=== PATIENT | female | born 1940 | race Caucasian/White ===

== ENCOUNTER 2018-10-14 21:55 | Inpatient (IN) | payer MEDICAID, OTHER, SELFPAY ==
[~2018-10-14] VITALS: Ht 152.4 cm; Wt 54.4 kg
[~2018-10-14 21:55] MED LIST: ENAL20TA PO
[2018-10-14] MEDS ORDERED: ONDANSETRON HCL 4MG/2ML INJ IV STA (22:55)
[2018-10-14] MEDS ORDERED: LORAZEPAM 0.5MG TABLET PO ONE (23:00)
[2018-10-14 23:13] LABS: BASOPHILS % 0.4 % (0.0-2.0); EOSINOPHILS % 0.8 % (0.0-5.0); HEMATOCRIT. 40.6 % (36.0-48.0); HEMOGLOBIN. 13.4 g/dL (12.0-16.0); LYMPHOCYTES % 20.2 % (20.0-50.0); MEAN CORPUSCULAR HEMOGLOBIN 28.4 pg (28.0-32.0); MEAN CORPUSCULAR VOLUME 85.8 fL (81.0-99.0); MEAN PLATELET VOLUME 8.2 fl (7.4-10.4); MONOCYTES % 8.2 % (2.0-8.0); NEUTROPHILS % 70.4 % (40.0-76.0); PLATELET 257 x1000/uL (130-400); RED BLOOD CELL COUNT 4.73 mill/uL (4.2-5.4); RED CELL DISTRIBUTION WIDTH 13.6 % (11.6-14.6)
[2018-10-14 23:16] LABS: CHLORIDE 103 mEq/L (98-107)
[2018-10-15] MEDS ORDERED: HYDROCODONE/ACETAMINOPHEN 10/325MG TABLET PO PRN (07:15)
[2018-10-15] MEDS ORDERED: HYDROMORPHONE HCL/PF 2MG/ML CPJ IV PRN (07:15)
[2018-10-15] MEDS ORDERED: GUAIFENESIN 200MG/10ML SUGAR FREE UDC PO PRN (07:15)
[2018-10-15] MEDS ORDERED: ONDANSETRON HCL 4MG/2ML INJ IV PRN (07:15)
[2018-10-15] MEDS ORDERED: MAGNESIUM/ALUMINUM HYDROXIDE/SIMETHICONE 30ML UDC PO PRN (07:15)
[2018-10-15] MEDS ORDERED: HYDRALAZINE 20MG/ML VIAL IV PRN (07:15)
[2018-10-15] MEDS ORDERED: IPRATROPIUM/ALBUTEROL 0.5-3(2.5)MG/3ML NEB INH PRN (07:15)
[2018-10-15] MEDS ORDERED: CLONIDINE 0.1MG TABLET PO PRN (07:15)
[2018-10-15] MEDS ORDERED: DOCUSATE SODIUM 100MG CAPSULE PO PRN (07:15)
[2018-10-15] MEDS ORDERED: LORAZEPAM 2MG/ML CPJ IV PRN (07:15)
[2018-10-15] MEDS ORDERED: POTASSIUM CHLORIDE 20MEQ TABLET SR PO SCH (07:30)
[2018-10-15] MEDS ORDERED: CALCIUM GLUCONATE 1,000 MG in DEXTROSE 5% WATER 50 ML IV SCH (08:00)
[2018-10-15] MEDS: ASPIRIN 81MG EC TABLET PO SCH (09:43)
[2018-10-15] MEDS: ENOXAPARIN 40MG/0.4ML SYR SUBCUT SCH (09:44)
[2018-10-15 13:28] VITALS: BP 150/88
[2018-10-15] MEDS: LOSARTAN POTASSIUM 25 MG TABLET PO SCH (14:00)
[2018-10-15] MEDS: SODIUM CHLORIDE 0.9% INJ 3ML FLUSH IVF SCH ×2 (14:01→20:34)
[2018-10-15] MEDS: ACETAMINOPHEN 325MG TABLET PO PRN (14:24)
[2018-10-15 14:28] VITALS: BP 135/72
[2018-10-15 14:38] VITALS: BP 135/72
[2018-10-15 15:52] LABS: CREATINE KINASE 356 IU/L (26-192)
[2018-10-15 15:53] LABS: CREATINE KINASE MB FRACTION 2.4 ng/mL (0.5-3.6)
[2018-10-15] MEDS: POTASSIUM CHLORIDE 20MEQ TABLET SR PO SCH (18:44)
[2018-10-15 20:00] VITALS: BP 149/74
[2018-10-16] VITALS: BP 148/78
[2018-10-16 04:00] VITALS: BP 128/58
[2018-10-16] MEDS: SODIUM CHLORIDE 0.9% INJ 3ML FLUSH IVF SCH ×3 (06:19→21:19)
[2018-10-16 08:00] VITALS: BP 142/66
[2018-10-16] MEDS: ENOXAPARIN 40MG/0.4ML SYR SUBCUT SCH (08:20)
[2018-10-16] MEDS: LOSARTAN POTASSIUM 25 MG TABLET PO SCH (08:20)
[2018-10-16] MEDS: POTASSIUM CHLORIDE 20MEQ TABLET SR PO SCH ×2 (08:20→17:32)
[2018-10-16] MEDS: ASPIRIN 81MG EC TABLET PO SCH (08:20)
[2018-10-16 09:02] LABS: BASOPHILS % 0.3 % (0.0-2.0); EOSINOPHILS % 2.2 % (0.0-5.0); HEMATOCRIT. 36.4 % (36.0-48.0); LYMPHOCYTES % 22.4 % (20.0-50.0); MEAN CORPUSCULAR HEMOGLOBIN 28.8 pg (28.0-32.0); MEAN CORPUSCULAR VOLUME 86.9 fL (81.0-99.0); MEAN PLATELET VOLUME 8.8 fl (7.4-10.4); MONOCYTES % 9.4 % (2.0-8.0); NEUTROPHILS % 65.7 % (40.0-76.0); PLATELET 227 x1000/uL (130-400); RED BLOOD CELL COUNT 4.18 mill/uL (4.2-5.4); RED CELL DISTRIBUTION WIDTH 13.6 % (11.6-14.6)
[2018-10-16 09:28] LABS: CHLORIDE 107 mEq/L (98-107)
[2018-10-16 09:41] LABS: T4 FREE 0.98 ng/dL (0.76-1.46)
[2018-10-16 09:43] LABS: HDL CHOLESTEROL 46 mg/dL (40-59); LDL CHOLESTEROL 105 mg/dL (5-100)
[2018-10-16 11:54] VITALS: BP 140/61
[2018-10-16] MEDS: ACETAMINOPHEN 325MG TABLET PO PRN (12:02)
[2018-10-16 16:00] VITALS: BP 146/57
[2018-10-16 20:00] VITALS: BP 161/93
[2018-10-16] MEDS ORDERED: CALCIUM GLUCONATE 1,000 MG in DEXTROSE 5% WATER 50 ML IV NR (22:00)
[2018-10-17] VITALS: BP 150/74
[2018-10-17 04:00] VITALS: BP 145/70
[2018-10-17] MEDS: SODIUM CHLORIDE 0.9% INJ 3ML FLUSH IVF SCH (06:35)
[2018-10-17 07:27] LABS: CHLORIDE 106 mEq/L (98-107)
[2018-10-17] MEDS: LOSARTAN POTASSIUM 25 MG TABLET PO SCH (08:14)
[2018-10-17] MEDS: POTASSIUM CHLORIDE 20MEQ TABLET SR PO SCH (08:14)
[2018-10-17] MEDS: ENOXAPARIN 40MG/0.4ML SYR SUBCUT SCH (08:14)
[2018-10-17] MEDS: ASPIRIN 81MG EC TABLET PO SCH (08:14)
[2018-10-17 10:18] VITALS: BP 120/76
== END 2018-10-17 11:35 | disposition home or self-care (01) | DRG 48 ==
LOC: ER 21:55 → 8WST 10-15 02:29 → EDBEDREQTM 10-15 02:33 → EDBEDREQ 10-15 02:33 → EDBEDREQDT 10-15 02:33 → ENRESERV 10-15 10:29
PROVIDERS: ADMIT Internal Medicine; ATTEND Internal Medicine
DX: G90.8 Other disorders of autonomic nervous system (principal); E83.51 Hypocalcemia; E87.5 Hyperkalemia; R07.9 Chest pain, unspecified; E87.6 Hypokalemia; I10 Essential (primary) hypertension; Z87.442 Personal history of urinary calculi; Z79.899 Other long term (current) drug therapy
CPT/HCPCS: 36415; 71045; 80048; 80061; 82550; 82553; 84439; 84443; 84484; 85379; 93005; 93306; 93970; 96365; 96375; 99285; C1893; J0610; J1650; J2405; J7050; J7060

== ENCOUNTER 2020-06-19 08:15 | Inpatient (IN) | payer MEDICAID ==
[~2020-06-19] VITALS: Ht 144.8 cm; Wt 81.6 kg
[2020-06-19] MEDS ORDERED: SODIUM CHLORIDE 0.9% 1,000 ML IV ONE (10:45)
[2020-06-19 11:26] LABS: BASOPHILS % 0.1 % (0.0-2.0); HEMATOCRIT. 37.2 % (36.0-48.0); HEMOGLOBIN. 13.1 g/dL (12.0-16.0); LYMPHOCYTES % 7.7 % (20.0-50.0); MEAN CORPUSCULAR HEMOGLOBIN 28.9 pg (28.0-32.0); MEAN CORPUSCULAR VOLUME 82.3 fL (81.0-99.0); MEAN PLATELET VOLUME 8.2 fl (7.4-10.4); MONOCYTES % 3.7 % (2.0-8.0); NEUTROPHILS % 88.5 % (40.0-76.0); PLATELET 276 x1000/uL (130-400); RED BLOOD CELL COUNT 4.52 mill/uL (4.2-5.4); RED CELL DISTRIBUTION WIDTH 13.7 % (11.6-14.6)
[2020-06-19 11:29] LABS: CHLORIDE 76 mEq/L (98-107)
[2020-06-19 11:32] LABS: INR 1.1; PROTHROMBIN TIME 11.4 sec (9.6-11.0)
[2020-06-19] MEDS ORDERED: CALCIUM GLUCONATE 100MG/ML 10ML VIAL IV ONE (12:15)
[2020-06-19] MEDS ORDERED: KCL 20MEQ/100ML PREMIX 100 ML IV ONE (13:00)
[2020-06-19] MEDS ORDERED: LORAZEPAM 2MG/ML CPJ IV NR (14:30)
[2020-06-19] MEDS ORDERED: SODIUM CHLORIDE 0.9% 1,000 ML IV SCH ×2 (14:45→15:15)
[2020-06-19] MEDS ORDERED: ONDANSETRON HCL 4MG/2ML INJ IV PRN (14:45)
[2020-06-19] MEDS ORDERED: ACETAMINOPHEN 325MG TABLET PO PRN (14:45)
[2020-06-19] MEDS ORDERED: MAGNESIUM 2 G PREMIX 50 ML IV NR ×2 (15:00→18:00)
[2020-06-19] MEDS ORDERED: AZITHROMYCIN 500 MG TABLET PO NR (15:00)
[2020-06-19] MEDS: CEFTRIAXONE 1 G PREMIX 50 ML IV SCH (15:00)
[2020-06-19 15:24] LABS: BG BASE EXCESS -0.3 mmol/L (-2.0-2.0); BG CARBOXYHEMOGLOBIN 0.8 % (0.5-1.5); BG DEOXYHEMOGLOBIN 2.7 % (0.0-5.0); BG FRACTION INSPIRED OXYGEN 36; BG HCO3 ACT 29.4 mmol/L (22.0-26.0); BG METHEMOGLOBIN 0.3 % (0.0-1.5); BG OXYGEN SATURATION 97.3 % (92.0-98.5); BG OXYHEMOGLOBIN 96.2 % (94.0-97.0); BG PCO2 73.7 mmHg (35.0-45.0); BG PH 7.219 (7.350-7.450); BG PO2 126.8 mmHg (75.0-100.0); BG SAMPLE SITE RIGHT BRACHIAL; BG TOTAL HEMOGLOBIN 13.8 g/dL (12.0-18.0); BG VENT MODE NASAL CANNULA
[2020-06-19] MEDS: IPRATROPIUM/ALBUTEROL 0.5-3(2.5)MG/3ML NEB HHN SCH ×2 (16:05→23:53)
[2020-06-19] MEDS: METHYLPREDNISOLONE SOD SUCC 40 MG/ML VIAL IV SCH (16:44)
[2020-06-19 17:00] LABS: CHLORIDE 81 mEq/L (98-107)
[2020-06-19] MEDS ORDERED: CALCITRIOL 0.5MCG CAPSULE PO SCH (17:00)
[2020-06-19] MEDS: AMLODIPINE 10MG TABLET PO SCH (17:00)
[2020-06-19] MEDS ORDERED: CALCIUM CARBONATE 1250MG TABLET (500MG ELEMENTAL CALCIUM) PO SCH (17:00)
[2020-06-19] MEDS ORDERED: CALCIUM GLUCONATE 100MG/ML 10ML VIAL IV NR (18:00)
[2020-06-19] MEDS: LORAZEPAM 2MG/ML CPJ IV PRN (20:42)
[2020-06-20] MEDS: METHYLPREDNISOLONE SOD SUCC 40 MG/ML VIAL IV SCH ×3 (01:32→17:05)
[2020-06-20 03:34] LABS: HEMATOCRIT. 36.2 % (36.0-48.0); HEMOGLOBIN. 12.5 g/dL (12.0-16.0); MEAN CORPUSCULAR HEMOGLOBIN 28.3 pg (28.0-32.0); MEAN CORPUSCULAR VOLUME 82.4 fL (81.0-99.0); MEAN PLATELET VOLUME 7.9 fl (7.4-10.4); PLATELET 263 x1000/uL (130-400); RED CELL DISTRIBUTION WIDTH 14.2 % (11.6-14.6)
[2020-06-20 03:40] LABS: CHLORIDE 85 mEq/L (98-107)
[2020-06-20 03:45] LABS: PHOSPHORUS 7.2 mg/dL (2.5-4.9)
[2020-06-20] MEDS: IPRATROPIUM/ALBUTEROL 0.5-3(2.5)MG/3ML NEB HHN SCH ×5 (04:04→21:10)
[2020-06-20] MEDS ORDERED: POTASSIUM CHLORIDE INJ 60 MEQ in DEXT 5% WATER 500 ML IV SCH (06:00)
[2020-06-20] MEDS ORDERED: CALCIUM GLUCONATE 2,000 MG in DEXT 5% WATER 100 ML IV SCH (06:00)
[2020-06-20] MEDS: AMLODIPINE 10MG TABLET PO SCH (09:00)
[2020-06-20] MEDS: AZITHROMYCIN 500 MG TABLET PO SCH (09:00)
[2020-06-20] MEDS: ERGOCALCIFEROL 50000UNITS CAPSULE PO SCH (10:00)
[2020-06-20 10:22] LABS: BG CARBOXYHEMOGLOBIN 0.3 % (0.5-1.5); BG DEOXYHEMOGLOBIN 3.8 % (0.0-5.0); BG FRACTION INSPIRED OXYGEN 50; BG HCO3 ACT 21.1 mmol/L (22.0-26.0); BG METHEMOGLOBIN 0.2 % (0.0-1.5); BG OXYGEN SATURATION 96.2 % (92.0-98.5); BG OXYHEMOGLOBIN 95.7 % (94.0-97.0); BG PH 7.451 (7.350-7.450); BG PO2 86.1 mmHg (75.0-100.0); BG SAMPLE SITE RIGHT RADIAL; BG TOTAL HEMOGLOBIN 12.5 g/dL (12.0-18.0); BG TOTAL RESPIRATORY RATE 24 b/min; BG VENT MODE MASK - BIPAP
[2020-06-20] MEDS: POTASSIUM CHLORIDE INJ 60 MEQ in SODIUM CHLORIDE 0.9% 1,000 ML IV SCH (11:14)
[2020-06-20] MEDS: CALCIUM CARBONATE 1250MG TABLET (500MG ELEMENTAL CALCIUM) PO SCH ×2 (12:00→17:49)
[2020-06-20] MEDS: CEFTRIAXONE 1 G PREMIX 50 ML IV SCH (15:00)
[2020-06-21] VITALS (8 sets, daily range): BP systolic 114–160; BP diastolic 60–86
[2020-06-21] MEDS: METHYLPREDNISOLONE SOD SUCC 40 MG/ML VIAL IV SCH ×3 (02:07→18:52)
[2020-06-21 05:15] LABS: CHLORIDE 97 mEq/L (98-107)
[2020-06-21 05:17] LABS: HEMATOCRIT. 35.8 % (36.0-48.0); HEMOGLOBIN. 11.8 g/dL (12.0-16.0); MEAN CORPUSCULAR HEMOGLOBIN 27.9 pg (28.0-32.0); MEAN CORPUSCULAR VOLUME 84.3 fL (81.0-99.0); MEAN PLATELET VOLUME 7.6 fl (7.4-10.4); PLATELET 315 x1000/uL (130-400); RED BLOOD CELL COUNT 4.24 mill/uL (4.2-5.4); RED CELL DISTRIBUTION WIDTH 13.8 % (11.6-14.6)
[2020-06-21 05:20] LABS: PHOSPHORUS 4.6 mg/dL (2.5-4.9)
[2020-06-21] MEDS ORDERED: CALCIUM GLUCONATE IV SCH (07:00)
[2020-06-21] MEDS ORDERED: DEXT 5% IV SCH (07:00)
[2020-06-21] MEDS ORDERED: CALCIUM GLUCONATE 4,000 MG in DEXT 5% WATER 250 ML IV SCH (07:00)
[2020-06-21] MEDS ORDERED: WATER IV SCH (07:00)
[2020-06-21] MEDS: IPRATROPIUM/ALBUTEROL 0.5-3(2.5)MG/3ML NEB HHN SCH ×2 (07:30→08:00)
[2020-06-21 07:37] LABS: PLATELET ESTIMATE NORMAL
[2020-06-21] MEDS: POTASSIUM CHLORIDE INJ 60 MEQ in SODIUM CHLORIDE 0.9% 1,000 ML IV SCH ×2 (08:15→20:24)
[2020-06-21 08:58] LABS: PLATELET ESTIMATE NORMAL
[2020-06-21] MEDS: CALCIUM CARBONATE 1250MG TABLET (500MG ELEMENTAL CALCIUM) PO SCH ×3 (08:59→18:53)
[2020-06-21] MEDS: CALCITRIOL 0.5MCG CAPSULE PO SCH (08:59)
[2020-06-21] MEDS: AZITHROMYCIN 500 MG TABLET PO SCH (08:59)
[2020-06-21 09:09] LABS: VITAMIN D 25-OH 26.6 ng/mL (30.0-100.0)
[2020-06-21] MEDS: AMLODIPINE 10MG TABLET PO SCH (09:11)
[2020-06-21] MEDS: LORAZEPAM 2MG/ML CPJ IV PRN (13:30)
[2020-06-21] MEDS: CEFTRIAXONE 1 G PREMIX 50 ML IV SCH (15:00)
[2020-06-21] MEDS: ALBUTEROL 6.7GM HFA INHALER ORI SCH (20:00)
[2020-06-21] MEDS: DEXAMETHASONE 10 MG/ML VIAL IV SCH (20:03)
[2020-06-21] MEDS: ENOXAPARIN 30MG/0.3ML SYR SUBCUT SCH (20:36)
[2020-06-21 20:46] LABS: CLARITY URINE CLEAR (CLEAR); COLOR URINE YELLOW (YELLOW); KETONES URINE NEGATIVE (NEGATIVE); LEUKOCYTE ESTERASE URINE NEGATIVE (NEGATIVE); NITRITE URINE NEGATIVE (NEGATIVE); OCCULT BLOOD URINE 1+ (NEGATIVE); PROTEIN URINE 2+ (NEGATIVE); SPECIFIC GRAVITY URINE 1.015 (1.005-1.030); UROBILINOGEN URINE 0.2 E.U./dL (0.2-1.0)
[2020-06-22] VITALS (61 sets, daily range): BP systolic 79–178; BP diastolic 44–112
[2020-06-22] MEDS: ALBUTEROL 6.7GM HFA INHALER ORI SCH ×5 (01:16→21:07)
[2020-06-22] MEDS: POTASSIUM CHLORIDE INJ 60 MEQ in SODIUM CHLORIDE 0.9% 1,000 ML IV SCH (04:00)
[2020-06-22 05:52] LABS: CHLORIDE 101 mEq/L (98-107); HEMATOCRIT. 34.5 % (36.0-48.0); HEMOGLOBIN. 11.5 g/dL (12.0-16.0); MEAN CORPUSCULAR HEMOGLOBIN 28.6 pg (28.0-32.0); MEAN CORPUSCULAR VOLUME 85.5 fL (81.0-99.0); MEAN PLATELET VOLUME 7.5 fl (7.4-10.4); PLATELET 304 x1000/uL (130-400); RED BLOOD CELL COUNT 4.03 mill/uL (4.2-5.4)
[2020-06-22 06:01] LABS: PHOSPHORUS 4.8 mg/dL (2.5-4.9)
[2020-06-22] MEDS: CALCIUM CARBONATE 1250MG TABLET (500MG ELEMENTAL CALCIUM) PO SCH ×3 (07:00→16:46)
[2020-06-22] MEDS: CALCITRIOL 0.5MCG CAPSULE PO SCH (09:00)
[2020-06-22] MEDS: AZITHROMYCIN 500 MG TABLET PO SCH (09:00)
[2020-06-22] MEDS: AMLODIPINE 10MG TABLET PO SCH (09:00)
[2020-06-22] MEDS: DEXAMETHASONE 10 MG/ML VIAL IV SCH (09:16)
[2020-06-22] MEDS: SODIUM CHLORIDE 0.9% 1,000 ML IV SCH (09:16)
[2020-06-22 10:08] LABS: VITAMIN D 1-25 DIHYDROXY 30.7 pg/mL (19.9-79.3)
[2020-06-22] MEDS: LORAZEPAM 2MG/ML CPJ IV PRN (11:34)
[2020-06-22] MEDS ORDERED: PROPOFOL 10MG/ML 100ML 100 ML IV PRN (13:00)
[2020-06-22 13:24] LABS: ATYPICAL LYMPHOCYTES 1
[2020-06-22 13:25] LABS: PLATELET ESTIMATE NORMAL
[2020-06-22] MEDS: CEFTRIAXONE 1,000 MG in DEXTROSE 5% WATER 50 ML IV SCH (14:07)
[2020-06-22 14:19] LABS: BG BASE EXCESS -5.2 mmol/L (-2.0-2.0); BG CARBOXYHEMOGLOBIN 0.3 % (0.5-1.5); BG DEOXYHEMOGLOBIN 3.8 % (0.0-5.0); BG FRACTION INSPIRED OXYGEN 100; BG HCO3 ACT 20.8 mmol/L (22.0-26.0); BG OXYGEN SATURATION 96.2 % (92.0-98.5); BG OXYHEMOGLOBIN 95.9 % (94.0-97.0); BG PCO2 42.7 mmHg (35.0-45.0); BG PH 7.306 (7.350-7.450); BG PO2 94.7 mmHg (75.0-100.0); BG SAMPLE SITE RIGHT RADIAL; BG TOTAL HEMOGLOBIN 11.8 g/dL (12.0-18.0); BG TOTAL RESPIRATORY RATE 20 b/min; BG VENT MODE PRVC
[2020-06-22] MEDS: ENOXAPARIN 30MG/0.3ML SYR SUBCUT SCH (20:08)
[2020-06-22] MEDS: FENTANYL CITRATE/PF 2,500 MCG in SODIUM CHLORIDE 0.9% 200 ML IV PRN (20:54)
[2020-06-23] VITALS (86 sets, daily range): BP systolic 82–144; BP diastolic 44–81
[2020-06-23] MEDS: ALBUTEROL 6.7GM HFA INHALER ORI SCH ×6 (00:49→20:22)
[2020-06-23] MEDS: SODIUM CHLORIDE 0.9% 1,000 ML IV SCH ×2 (02:55→20:31)
[2020-06-23] MEDS: FENTANYL CITRATE/PF 2,500 MCG in SODIUM CHLORIDE 0.9% 200 ML IV PRN ×2 (05:07→16:25)
[2020-06-23 05:47] LABS: HEMATOCRIT. 35.3 % (36.0-48.0); HEMOGLOBIN. 11.7 g/dL (12.0-16.0); MEAN CORPUSCULAR VOLUME 84.9 fL (81.0-99.0); MEAN PLATELET VOLUME 7.6 fl (7.4-10.4); PLATELET 338 x1000/uL (130-400); RED BLOOD CELL COUNT 4.16 mill/uL (4.2-5.4); RED CELL DISTRIBUTION WIDTH 14.3 % (11.6-14.6)
[2020-06-23 05:59] LABS: PHOSPHORUS 5.7 mg/dL (2.5-4.9)
[2020-06-23] MEDS: CALCIUM CARBONATE 1250MG TABLET (500MG ELEMENTAL CALCIUM) PO SCH ×3 (06:12→16:22)
[2020-06-23 07:44] LABS: PLATELET ESTIMATE NORMAL
[2020-06-23] MEDS: CALCITRIOL 0.5MCG CAPSULE PO SCH (09:02)
[2020-06-23] MEDS: DEXAMETHASONE 10 MG/ML VIAL IV SCH (09:02)
[2020-06-23] MEDS: AMLODIPINE 10MG TABLET PO SCH (09:03)
[2020-06-23 09:32] LABS: BG BASE EXCESS -4.5 mmol/L (-2.0-2.0); BG CARBOXYHEMOGLOBIN 0.2 % (0.5-1.5); BG DEOXYHEMOGLOBIN 7.6 % (0.0-5.0); BG FRACTION INSPIRED OXYGEN 100; BG HCO3 ACT 22.4 mmol/L (22.0-26.0); BG METHEMOGLOBIN 0.2 % (0.0-1.5); BG OXYGEN SATURATION 92.4 % (92.0-98.5); BG PCO2 48.9 mmHg (35.0-45.0); BG PH 7.278 (7.350-7.450); BG PO2 70.8 mmHg (75.0-100.0); BG SAMPLE SITE RIGHT RADIAL; BG TOTAL HEMOGLOBIN 11.5 g/dL (12.0-18.0); BG TOTAL RESPIRATORY RATE 20 b/min; BG VENT MODE VENT- PRVC
[2020-06-23] MEDS: PANTOPRAZOLE SODIUM 40 MG/VIAL IV SCH (11:48)
[2020-06-23] MEDS: CEFTRIAXONE 1,000 MG in DEXTROSE 5% WATER 50 ML IV SCH (14:10)
[2020-06-23] MEDS: ENOXAPARIN 30MG/0.3ML SYR SUBCUT SCH (20:30)
[2020-06-23] MEDS: NOREPINEPHRINE 32 MG in DEXT 5% WATER 218 ML IV PRN (23:26)
[2020-06-24] VITALS (90 sets, daily range): BP systolic 82–163; BP diastolic 41–87
[2020-06-24] MEDS: ALBUTEROL 6.7GM HFA INHALER ORI SCH ×6 (00:27→20:30)
[2020-06-24 05:24] LABS: HEMATOCRIT. 32.5 % (36.0-48.0); HEMOGLOBIN. 10.8 g/dL (12.0-16.0); MEAN CORPUSCULAR HEMOGLOBIN 28.5 pg (28.0-32.0); MEAN CORPUSCULAR VOLUME 85.6 fL (81.0-99.0); MEAN PLATELET VOLUME 7.1 fl (7.4-10.4); PLATELET 308 x1000/uL (130-400); RED CELL DISTRIBUTION WIDTH 14.4 % (11.6-14.6)
[2020-06-24 05:40] LABS: PHOSPHORUS 4.1 mg/dL (2.5-4.9)
[2020-06-24] MEDS: CALCIUM CARBONATE 1250MG TABLET (500MG ELEMENTAL CALCIUM) PO SCH ×3 (06:40→16:48)
[2020-06-24 06:56] LABS: PLATELET ESTIMATE NORMAL
[2020-06-24] MEDS: PANTOPRAZOLE SODIUM 40 MG/VIAL IV SCH (08:15)
[2020-06-24] MEDS: DEXAMETHASONE 10 MG/ML VIAL IV SCH (08:15)
[2020-06-24] MEDS: CALCITRIOL 0.5MCG CAPSULE PO SCH (08:16)
[2020-06-24 09:07] LABS: BG BASE EXCESS -6.6 mmol/L (-2.0-2.0); BG CARBOXYHEMOGLOBIN 0.3 % (0.5-1.5); BG DEOXYHEMOGLOBIN 4.6 % (0.0-5.0); BG FRACTION INSPIRED OXYGEN 100; BG HCO3 ACT 19.8 mmol/L (22.0-26.0); BG METHEMOGLOBIN 0.3 % (0.0-1.5); BG OXYGEN SATURATION 95.4 % (92.0-98.5); BG OXYHEMOGLOBIN 94.8 % (94.0-97.0); BG PCO2 42.8 mmHg (35.0-45.0); BG PH 7.282 (7.350-7.450); BG SAMPLE SITE RIGHT RADIAL; BG TOTAL HEMOGLOBIN 10.3 g/dL (12.0-18.0); BG VENT MODE PRVC
[2020-06-24] MEDS: CALCIUM GLUCONATE 1,000 MG in DEXT 5% WATER 90 ML IV SCH ×2 (11:47→19:53)
[2020-06-24] MEDS: FENTANYL CITRATE/PF 2,500 MCG in SODIUM CHLORIDE 0.9% 200 ML IV PRN (16:07)
[2020-06-24] MEDS: NOREPINEPHRINE 32 MG in DEXT 5% WATER 218 ML IV PRN (16:50)
[2020-06-24] MEDS: ENOXAPARIN 30MG/0.3ML SYR SUBCUT SCH (19:53)
[2020-06-25] VITALS (87 sets, daily range): BP systolic 95–170; BP diastolic 30–91
[2020-06-25 05:49] LABS: PHOSPHORUS 5.5 mg/dL (2.5-4.9)
[2020-06-25] MEDS: CALCIUM CARBONATE 1250MG TABLET (500MG ELEMENTAL CALCIUM) PO SCH ×3 (06:24→16:54)
[2020-06-25 06:44] LABS: HEMATOCRIT. 31.5 % (36.0-48.0); HEMOGLOBIN. 10.4 g/dL (12.0-16.0); MEAN CORPUSCULAR HEMOGLOBIN 28.7 pg (28.0-32.0); MEAN CORPUSCULAR VOLUME 86.7 fL (81.0-99.0); RED BLOOD CELL COUNT 3.63 mill/uL (4.2-5.4); RED CELL DISTRIBUTION WIDTH 14.8 % (11.6-14.6)
[2020-06-25 08:13] LABS: BG BASE EXCESS -4.8 mmol/L (-2.0-2.0); BG CARBOXYHEMOGLOBIN 0.2 % (0.5-1.5); BG DEOXYHEMOGLOBIN 1.6 % (0.0-5.0); BG HCO3 ACT 21.4 mmol/L (22.0-26.0); BG METHEMOGLOBIN 0.9 % (0.0-1.5); BG OXYGEN SATURATION 98.4 % (92.0-98.5); BG OXYHEMOGLOBIN 97.3 % (94.0-97.0); BG PCO2 44.9 mmHg (35.0-45.0); BG PH 7.297 (7.350-7.450); BG PO2 158.1 mmHg (75.0-100.0); BG SAMPLE SITE RIGHT RADIAL; BG TOTAL HEMOGLOBIN 10.3 g/dL (12.0-18.0); BG VENT MODE VENT - APRV
[2020-06-25] MEDS: DEXAMETHASONE 10 MG/ML VIAL IV SCH (09:25)
[2020-06-25] MEDS: CALCITRIOL 0.5MCG CAPSULE PO SCH (09:25)
[2020-06-25] MEDS: CALCIUM GLUCONATE 1,000 MG in DEXT 5% WATER 90 ML IV SCH ×2 (09:25→20:36)
[2020-06-25] MEDS ORDERED: SODIUM POLYSTYRENE SULFONATE 15 G/60 ML BOT PO NR (09:30)
[2020-06-25 09:32] LABS: PLATELET 197 x1000/uL (130-400)
[2020-06-25 09:37] LABS: PLATELET ESTIMATE NORMAL
[2020-06-25] MEDS: FENTANYL CITRATE/PF 2,500 MCG in SODIUM CHLORIDE 0.9% 200 ML IV PRN (19:39)
[2020-06-25] MEDS: ENOXAPARIN 30MG/0.3ML SYR SUBCUT SCH (20:36)
[2020-06-26] VITALS (96 sets, daily range): BP systolic 106–195; BP diastolic 55–112
[2020-06-26] MEDS: ALBUTEROL 6.7GM HFA INHALER ORI SCH ×6 (00:17→20:30)
[2020-06-26 06:05] LABS: CHLORIDE 109 mEq/L (98-107)
[2020-06-26 06:12] LABS: PHOSPHORUS 5.5 mg/dL (2.5-4.9)
[2020-06-26] MEDS: CALCIUM CARBONATE 1250MG TABLET (500MG ELEMENTAL CALCIUM) PO SCH ×3 (06:58→17:28)
[2020-06-26] MEDS: DEXAMETHASONE 10 MG/ML VIAL IV SCH (08:33)
[2020-06-26] MEDS: CALCITRIOL 0.5MCG CAPSULE PO SCH (08:33)
[2020-06-26] MEDS: CALCIUM GLUCONATE 1,000 MG in DEXT 5% WATER 90 ML IV SCH ×2 (08:33→20:04)
[2020-06-26 08:45] LABS: HEMATOCRIT. 30.3 % (36.0-48.0); HEMOGLOBIN. 10.2 g/dL (12.0-16.0); MEAN CORPUSCULAR HEMOGLOBIN 28.2 pg (28.0-32.0); MEAN CORPUSCULAR VOLUME 84.2 fL (81.0-99.0); MEAN PLATELET VOLUME 7.1 fl (7.4-10.4); PLATELET 213 x1000/uL (130-400); RED CELL DISTRIBUTION WIDTH 14.5 % (11.6-14.6)
[2020-06-26 09:12] LABS: BG BASE EXCESS -1.1 mmol/L (-2.0-2.0); BG CARBOXYHEMOGLOBIN 0.3 % (0.5-1.5); BG DEOXYHEMOGLOBIN 5.3 % (0.0-5.0); BG HCO3 ACT 22.9 mmol/L (22.0-26.0); BG METHEMOGLOBIN 0.1 % (0.0-1.5); BG OXYGEN SATURATION 94.7 % (92.0-98.5); BG OXYHEMOGLOBIN 94.3 % (94.0-97.0); BG PCO2 35.6 mmHg (35.0-45.0); BG PH 7.427 (7.350-7.450); BG PO2 74.4 mmHg (75.0-100.0); BG SAMPLE SITE RIGHT RADIAL; BG TOTAL HEMOGLOBIN 9.7 g/dL (12.0-18.0); BG VENT MODE VENT - APRV
[2020-06-26 09:49] LABS: PLATELET ESTIMATE NORMAL
[2020-06-26] MEDS: AMLODIPINE 10MG TABLET PO SCH (11:08)
[2020-06-26] MEDS: MIDAZOLAM HCL 100 MG in DEXT 5% WATER 80 ML IV PRN (11:27)
[2020-06-26] MEDS: FENTANYL CITRATE/PF 2,500 MCG in SODIUM CHLORIDE 0.9% 200 ML IV PRN (11:28)
[2020-06-26] MEDS ORDERED: HYDRALAZINE HCL 50MG TABLET PO NR (11:30)
[2020-06-26] MEDS: HYDRALAZINE HCL 50MG TABLET PO SCH ×2 (14:00→22:25)
[2020-06-26] MEDS: ENOXAPARIN 30MG/0.3ML SYR SUBCUT SCH (20:04)
[2020-06-27] VITALS (83 sets, daily range): BP systolic 114–149; BP diastolic 55–88
[2020-06-27] MEDS: ALBUTEROL 6.7GM HFA INHALER ORI SCH ×3 (00:30→08:52)
[2020-06-27 05:43] LABS: HEMATOCRIT. 28.8 % (36.0-48.0); HEMOGLOBIN. 9.6 g/dL (12.0-16.0); MEAN CORPUSCULAR HEMOGLOBIN 28.2 pg (28.0-32.0); MEAN CORPUSCULAR VOLUME 85.1 fL (81.0-99.0); MEAN PLATELET VOLUME 7.7 fl (7.4-10.4); PLATELET 178 x1000/uL (130-400); RED BLOOD CELL COUNT 3.39 mill/uL (4.2-5.4); RED CELL DISTRIBUTION WIDTH 14.4 % (11.6-14.6)
[2020-06-27 06:03] LABS: CHLORIDE 110 mEq/L (98-107)
[2020-06-27 06:15] LABS: PHOSPHORUS 4.9 mg/dL (2.5-4.9)
[2020-06-27] MEDS: HYDRALAZINE HCL 50MG TABLET PO SCH ×3 (06:31→21:09)
[2020-06-27] MEDS: CALCIUM CARBONATE 1250MG TABLET (500MG ELEMENTAL CALCIUM) PO SCH ×3 (06:33→17:46)
[2020-06-27 07:40] LABS: PLATELET ESTIMATE NORMAL
[2020-06-27] MEDS: CALCITRIOL 0.5MCG CAPSULE PO SCH (08:26)
[2020-06-27] MEDS: AMLODIPINE 10MG TABLET PO SCH (08:27)
[2020-06-27] MEDS: DEXAMETHASONE 10 MG/ML VIAL IV SCH ×2 (08:27→11:30)
[2020-06-27] MEDS: ERGOCALCIFEROL 50000UNITS CAPSULE PO SCH (08:27)
[2020-06-27] MEDS: MIDAZOLAM HCL 100 MG in DEXT 5% WATER 80 ML IV PRN (09:05)
[2020-06-27 09:43] LABS: BG BASE EXCESS 0.1 mmol/L (-2.0-2.0); BG CARBOXYHEMOGLOBIN 0.8 % (0.5-1.5); BG FRACTION INSPIRED OXYGEN 90; BG HCO3 ACT 25.2 mmol/L (22.0-26.0); BG METHEMOGLOBIN 0.1 % (0.0-1.5); BG OXYGEN SATURATION 93.9 % (92.0-98.5); BG OXYHEMOGLOBIN 93.1 % (94.0-97.0); BG PCO2 43.2 mmHg (35.0-45.0); BG PH 7.384 (7.350-7.450); BG PO2 71.4 mmHg (75.0-100.0); BG SAMPLE SITE RIGHT RADIAL; BG TOTAL HEMOGLOBIN 8.8 g/dL (12.0-18.0); BG VENT MODE PRVC
[2020-06-27] MEDS: CALCIUM GLUCONATE 1,000 MG in DEXT 5% WATER 90 ML IV SCH (10:30)
[2020-06-27] MEDS ORDERED: IPRATROPIUM/ALBUTEROL 0.5-3(2.5)MG/3ML NEB HHN PRN (10:45)
[2020-06-27] MEDS: IPRATROPIUM/ALBUTEROL 0.5-3(2.5)MG/3ML NEB HHN SCH ×3 (11:49→21:06)
[2020-06-27] MEDS: FENTANYL CITRATE/PF 2,500 MCG in SODIUM CHLORIDE 0.9% 200 ML IV PRN (11:59)
[2020-06-27] MEDS: ENOXAPARIN 30MG/0.3ML SYR SUBCUT SCH (21:10)
[2020-06-28] VITALS (96 sets, daily range): BP systolic 103–149; BP diastolic 53–74
[2020-06-28] MEDS: IPRATROPIUM/ALBUTEROL 0.5-3(2.5)MG/3ML NEB HHN SCH ×6 (00:33→19:59)
[2020-06-28] MEDS: CALCIUM CARBONATE 1250MG TABLET (500MG ELEMENTAL CALCIUM) PO SCH ×3 (06:05→17:19)
[2020-06-28] MEDS: HYDRALAZINE HCL 50MG TABLET PO SCH ×3 (06:05→21:37)
[2020-06-28 06:09] LABS: HEMATOCRIT. 30.8 % (36.0-48.0); HEMOGLOBIN. 10.2 g/dL (12.0-16.0); MEAN CORPUSCULAR HEMOGLOBIN 28.2 pg (28.0-32.0); MEAN CORPUSCULAR VOLUME 85.4 fL (81.0-99.0); MEAN PLATELET VOLUME 8.1 fl (7.4-10.4); PLATELET 157 x1000/uL (130-400); RED BLOOD CELL COUNT 3.61 mill/uL (4.2-5.4); RED CELL DISTRIBUTION WIDTH 14.9 % (11.6-14.6)
[2020-06-28 06:10] LABS: CHLORIDE 109 mEq/L (98-107)
[2020-06-28 06:15] LABS: PHOSPHORUS 5.9 mg/dL (2.5-4.9)
[2020-06-28 08:22] LABS: PLATELET ESTIMATE NORMAL
[2020-06-28 08:27] LABS: BG BASE EXCESS 5.2 mmol/L (-2.0-2.0); BG CARBOXYHEMOGLOBIN 0.2 % (0.5-1.5); BG DEOXYHEMOGLOBIN 6.3 % (0.0-5.0); BG METHEMOGLOBIN 0.3 % (0.0-1.5); BG OXYGEN SATURATION 93.7 % (92.0-98.5); BG OXYHEMOGLOBIN 93.2 % (94.0-97.0); BG PCO2 45.5 mmHg (35.0-45.0); BG PH 7.437 (7.350-7.450); BG PO2 72.4 mmHg (75.0-100.0); BG SAMPLE SITE RIGHT RADIAL; BG TOTAL HEMOGLOBIN 9.8 g/dL (12.0-18.0); BG VENT MODE VENT - APRV
[2020-06-28] MEDS: DEXAMETHASONE 10 MG/ML VIAL IV SCH (08:57)
[2020-06-28] MEDS: AMLODIPINE 10MG TABLET PO SCH (08:58)
[2020-06-28] MEDS: CALCITRIOL 0.5MCG CAPSULE PO SCH (08:58)
[2020-06-28] MEDS: CALCIUM GLUCONATE 1,000 MG in DEXT 5% WATER 90 ML IV SCH (10:53)
[2020-06-28] MEDS: PANTOPRAZOLE SODIUM 40 MG/VIAL IV SCH (12:56)
[2020-06-28] MEDS: MIDAZOLAM HCL 100 MG in DEXT 5% WATER 80 ML IV PRN (14:24)
[2020-06-28] MEDS: ENOXAPARIN 30MG/0.3ML SYR SUBCUT SCH (20:53)
[2020-06-29] VITALS (91 sets, daily range): BP systolic 106–139; BP diastolic 51–72
[2020-06-29] MEDS: IPRATROPIUM/ALBUTEROL 0.5-3(2.5)MG/3ML NEB HHN SCH ×7 (00:15→21:35)
[2020-06-29] MEDS: FENTANYL CITRATE/PF 2,500 MCG in SODIUM CHLORIDE 0.9% 200 ML IV PRN (02:36)
[2020-06-29] MEDS ORDERED: NOREPINEPHRINE 32 MG in DEXT 5% WATER 218 ML IV PRN (03:30)
[2020-06-29 06:03] LABS: CHLORIDE 108 mEq/L (98-107)
[2020-06-29 06:11] LABS: PHOSPHORUS 6.7 mg/dL (2.5-4.9)
[2020-06-29 06:14] LABS: HEMATOCRIT. 27.7 % (36.0-48.0); MEAN CORPUSCULAR HEMOGLOBIN 28.1 pg (28.0-32.0); MEAN CORPUSCULAR VOLUME 86.3 fL (81.0-99.0); MEAN PLATELET VOLUME 8.4 fl (7.4-10.4); PLATELET 128 x1000/uL (130-400); RED BLOOD CELL COUNT 3.21 mill/uL (4.2-5.4); RED CELL DISTRIBUTION WIDTH 14.8 % (11.6-14.6)
[2020-06-29] MEDS: CALCIUM CARBONATE 1250MG TABLET (500MG ELEMENTAL CALCIUM) PO SCH (06:37)
[2020-06-29] MEDS: HYDRALAZINE HCL 50MG TABLET PO SCH ×3 (06:38→22:23)
[2020-06-29 08:00] LABS: ATYPICAL LYMPHOCYTES 2
[2020-06-29 08:01] LABS: PLATELET ESTIMATE SLIGHTL
[2020-06-29 09:22] LABS: BG BASE EXCESS 7.2 mmol/L (-2.0-2.0); BG CARBOXYHEMOGLOBIN 0.2 % (0.5-1.5); BG DEOXYHEMOGLOBIN 9.2 % (0.0-5.0); BG FRACTION INSPIRED OXYGEN 80; BG HCO3 ACT 32.3 mmol/L (22.0-26.0); BG METHEMOGLOBIN 0.1 % (0.0-1.5); BG OXYGEN SATURATION 90.8 % (92.0-98.5); BG OXYHEMOGLOBIN 90.5 % (94.0-97.0); BG PCO2 48.2 mmHg (35.0-45.0); BG PH 7.444 (7.350-7.450); BG PO2 62.7 mmHg (75.0-100.0); BG TOTAL HEMOGLOBIN 11.3 g/dL (12.0-18.0); BG VENT MODE VENT - PRVC
[2020-06-29] MEDS: PANTOPRAZOLE SODIUM 40 MG/VIAL IV SCH (10:28)
[2020-06-29] MEDS: CALCIUM GLUCONATE 1,000 MG in DEXT 5% WATER 90 ML IV SCH (10:28)
[2020-06-29] MEDS: CALCITRIOL 0.5MCG CAPSULE PO SCH (10:28)
[2020-06-29] MEDS: DEXAMETHASONE 10 MG/ML VIAL IV SCH (10:28)
[2020-06-29] MEDS: AMLODIPINE 10MG TABLET PO SCH (10:29)
[2020-06-29] MEDS: CALCIUM CARBONATE 500MG TABLET CHEW PO SCH ×2 (14:22→22:23)
[2020-06-29] MEDS: ENOXAPARIN 30MG/0.3ML SYR SUBCUT SCH (19:56)
[2020-06-29] MEDS: ACETAMINOPHEN 650MG/20.3ML UDC GT PRN (22:22)
[2020-06-30] VITALS (85 sets, daily range): BP systolic 112–149; BP diastolic 58–81
[2020-06-30] MEDS: IPRATROPIUM/ALBUTEROL 0.5-3(2.5)MG/3ML NEB HHN SCH ×6 (01:20→21:06)
[2020-06-30 05:47] LABS: HEMATOCRIT. 30.1 % (36.0-48.0); HEMOGLOBIN. 9.9 g/dL (12.0-16.0); MEAN CORPUSCULAR HEMOGLOBIN 28.2 pg (28.0-32.0); MEAN CORPUSCULAR VOLUME 85.6 fL (81.0-99.0); MEAN PLATELET VOLUME 9.1 fl (7.4-10.4); PLATELET 119 x1000/uL (130-400); RED BLOOD CELL COUNT 3.51 mill/uL (4.2-5.4); RED CELL DISTRIBUTION WIDTH 14.6 % (11.6-14.6)
[2020-06-30 06:01] LABS: CHLORIDE 104 mEq/L (98-107)
[2020-06-30] MEDS: CALCIUM CARBONATE 500MG TABLET CHEW PO SCH ×3 (06:20→21:26)
[2020-06-30] MEDS: HYDRALAZINE HCL 50MG TABLET PO SCH ×3 (06:21→21:27)
[2020-06-30 06:35] LABS: PHOSPHORUS 8.6 mg/dL (2.5-4.9)
[2020-06-30] MEDS: MIDAZOLAM HCL 100 MG in DEXT 5% WATER 80 ML IV PRN ×2 (07:20→15:18)
[2020-06-30 08:17] LABS: CHLORIDE 104 mEq/L (98-107)
[2020-06-30] MEDS: PANTOPRAZOLE SODIUM 40 MG/VIAL IV SCH (09:17)
[2020-06-30] MEDS: DEXAMETHASONE 10 MG/ML VIAL IV SCH (09:18)
[2020-06-30 09:24] LABS: PLATELET ESTIMATE DECREASED
[2020-06-30] MEDS: SODIUM CHLORIDE 0.45% 1,000 ML IV SCH (09:35)
[2020-06-30] MEDS: AMLODIPINE 10MG TABLET PO SCH (09:38)
[2020-06-30] MEDS: CALCITRIOL 1 MCG/ML ORAL SYR PO SCH (11:02)
[2020-06-30] MEDS ORDERED: LACTULOSE 20G/30ML UDC PO NR (11:30)
[2020-06-30 11:41] LABS: BG BASE EXCESS 8.5 mmol/L (-2.0-2.0); BG FRACTION INSPIRED OXYGEN 100; BG HCO3 ACT 34.7 mmol/L (22.0-26.0); BG PCO2 53.5 mmHg (35.0-45.0); BG PO2 204.7 mmHg (75.0-100.0); BG SAMPLE SITE RIGHT RADIAL; BG TOTAL RESPIRATORY RATE 21 b/min; BG VENT MODE VENT- PRVC
[2020-06-30] MEDS ORDERED: DOCUSATE SODIUM 250MG CAPSULE PO SCH (12:00)
[2020-06-30] MEDS: DOCUSATE SODIUM SUGAR FREE 100MG/10ML UDC NG SCH (13:24)
[2020-06-30] MEDS: CEFEPIME 1,000 MG in DEXTROSE 5% WATER 50 ML IV SCH (13:24)
[2020-06-30] MEDS: FENTANYL CITRATE/PF 2,500 MCG in DEXT 5% WATER 200 ML IV PRN (15:19)
[2020-06-30] MEDS: ENOXAPARIN 30MG/0.3ML SYR SUBCUT SCH (20:43)
[2020-06-30] MEDS ORDERED: CALCIUM GLUCONATE 1,000 MG in DEXT 5% WATER 90 ML IV SCH (21:00)
[2020-06-30] MEDS: CALCIUM GLUCONATE 1GM PREMIX 50 ML IV SCH (21:29)
[2020-07-01] VITALS (92 sets, daily range): BP systolic 89–152; BP diastolic 48–82
[2020-07-01] MEDS: CEFEPIME 1,000 MG in DEXTROSE 5% WATER 50 ML IV SCH ×3 (00:07→21:20)
[2020-07-01] MEDS: IPRATROPIUM/ALBUTEROL 0.5-3(2.5)MG/3ML NEB HHN SCH ×6 (00:54→20:30)
[2020-07-01 05:33] LABS: HEMATOCRIT. 32.3 % (36.0-48.0); HEMOGLOBIN. 10.5 g/dL (12.0-16.0); MEAN CORPUSCULAR VOLUME 86.3 fL (81.0-99.0); MEAN PLATELET VOLUME 9.6 fl (7.4-10.4); PLATELET 90 x1000/uL (130-400); RED BLOOD CELL COUNT 3.75 mill/uL (4.2-5.4); RED CELL DISTRIBUTION WIDTH 14.4 % (11.6-14.6)
[2020-07-01] MEDS: CALCIUM CARBONATE 500MG TABLET CHEW PO SCH ×4 (05:44→21:20)
[2020-07-01] MEDS: HYDRALAZINE HCL 50MG TABLET PO SCH (05:44)
[2020-07-01 05:47] LABS: CHLORIDE 103 mEq/L (98-107)
[2020-07-01] MEDS: ACETAMINOPHEN 650MG/20.3ML UDC GT PRN (06:16)
[2020-07-01 08:13] LABS: PLATELET ESTIMATE DECREASED
[2020-07-01] MEDS: MIDAZOLAM HCL 100 MG in DEXT 5% WATER 80 ML IV PRN ×2 (08:24→18:33)
[2020-07-01] MEDS: DOCUSATE SODIUM SUGAR FREE 100MG/10ML UDC NG SCH (08:42)
[2020-07-01] MEDS: PANTOPRAZOLE SODIUM 40 MG/VIAL IV SCH (08:42)
[2020-07-01] MEDS: CALCIUM GLUCONATE 1GM PREMIX 50 ML IV SCH ×2 (08:43→21:21)
[2020-07-01] MEDS: DEXAMETHASONE 10 MG/ML VIAL IV SCH (08:43)
[2020-07-01] MEDS: CALCITRIOL 1 MCG/ML ORAL SYR PO SCH (08:54)
[2020-07-01 08:55] LABS: BG CARBOXYHEMOGLOBIN 0.3 % (0.5-1.5); BG DEOXYHEMOGLOBIN 19.5 % (0.0-5.0); BG HCO3 ACT 31.9 mmol/L (22.0-26.0); BG METHEMOGLOBIN 0.3 % (0.0-1.5); BG OXYGEN SATURATION 80.4 % (92.0-98.5); BG OXYHEMOGLOBIN 79.9 % (94.0-97.0); BG PCO2 53.6 mmHg (35.0-45.0); BG PH 7.392 (7.350-7.450); BG PO2 47.6 mmHg (75.0-100.0); BG SAMPLE SITE RIGHT RADIAL; BG TOTAL HEMOGLOBIN 9.7 g/dL (12.0-18.0); BG VENT MODE VENT - APRV
[2020-07-01] MEDS: AMLODIPINE 10MG TABLET PO SCH (09:00)
[2020-07-01] MEDS: FENTANYL CITRATE/PF 2,500 MCG in DEXT 5% WATER 200 ML IV PRN ×2 (11:22→18:35)
[2020-07-01 12:47] LABS: BG BASE EXCESS 7.4 mmol/L (-2.0-2.0); BG CARBOXYHEMOGLOBIN 0.1 % (0.5-1.5); BG DEOXYHEMOGLOBIN 1.9 % (0.0-5.0); BG FRACTION INSPIRED OXYGEN 100; BG HCO3 ACT 34.4 mmol/L (22.0-26.0); BG METHEMOGLOBIN 0.2 % (0.0-1.5); BG OXYGEN SATURATION 98.1 % (92.0-98.5); BG OXYHEMOGLOBIN 97.8 % (94.0-97.0); BG PCO2 63.3 mmHg (35.0-45.0); BG PH 7.353 (7.350-7.450); BG PO2 134.1 mmHg (75.0-100.0); BG SAMPLE SITE RIGHT RADIAL; BG TOTAL HEMOGLOBIN 9.8 g/dL (12.0-18.0); BG TOTAL RESPIRATORY RATE 23 b/min; BG VENT MODE VENT- PRVC
[2020-07-01] MEDS ORDERED: MAGNESIUM CITRATE 300ML SOLUTION PO NR (13:00)
[2020-07-01] MEDS ORDERED: BISACODYL 10MG SUPP PR NR (14:00)
[2020-07-01] MEDS: SODIUM CHLORIDE 0.45% 1,000 ML IV SCH (14:20)
[2020-07-01] MEDS: ENOXAPARIN 30MG/0.3ML SYR SUBCUT SCH (20:00)
[2020-07-01] MEDS: LACTULOSE 20G/30ML UDC PO PRN (21:21)
[2020-07-02] VITALS (94 sets, daily range): BP systolic 97–141; BP diastolic 50–81
[2020-07-02] MEDS: IPRATROPIUM/ALBUTEROL 0.5-3(2.5)MG/3ML NEB HHN SCH ×7 (00:33→23:40)
[2020-07-02 05:36] LABS: HEMATOCRIT. 28.2 % (36.0-48.0); HEMOGLOBIN. 9.3 g/dL (12.0-16.0); MEAN CORPUSCULAR HEMOGLOBIN 28.5 pg (28.0-32.0); MEAN CORPUSCULAR VOLUME 85.8 fL (81.0-99.0); MEAN PLATELET VOLUME 9.7 fl (7.4-10.4); PLATELET 100 x1000/uL (130-400); RED BLOOD CELL COUNT 3.28 mill/uL (4.2-5.4); RED CELL DISTRIBUTION WIDTH 14.6 % (11.6-14.6)
[2020-07-02 05:40] LABS: CHLORIDE 98 mEq/L (98-107)
[2020-07-02] MEDS: CALCIUM CARBONATE 500MG TABLET CHEW PO SCH ×3 (06:50→21:37)
[2020-07-02] MEDS: PANTOPRAZOLE SODIUM 40 MG/VIAL IV SCH (09:31)
[2020-07-02] MEDS: CEFEPIME 1,000 MG in DEXTROSE 5% WATER 50 ML IV SCH ×2 (09:31→20:47)
[2020-07-02] MEDS: DEXAMETHASONE 10 MG/ML VIAL IV SCH (09:31)
[2020-07-02] MEDS: DOCUSATE SODIUM SUGAR FREE 100MG/10ML UDC NG SCH (09:32)
[2020-07-02] MEDS: CALCITRIOL 1 MCG/ML ORAL SYR PO SCH (09:32)
[2020-07-02] MEDS: CALCIUM GLUCONATE 1GM PREMIX 50 ML IV SCH ×2 (09:32→21:53)
[2020-07-02 09:57] LABS: BG BASE EXCESS 1.7 mmol/L (-2.0-2.0); BG CARBOXYHEMOGLOBIN 0.3 % (0.5-1.5); BG DEOXYHEMOGLOBIN 1.4 % (0.0-5.0); BG FRACTION INSPIRED OXYGEN 100; BG HCO3 ACT 27.5 mmol/L (22.0-26.0); BG METHEMOGLOBIN 0.3 % (0.0-1.5); BG OXYGEN SATURATION 98.6 % (92.0-98.5); BG PCO2 49.6 mmHg (35.0-45.0); BG PH 7.362 (7.350-7.450); BG PO2 147.3 mmHg (75.0-100.0); BG SAMPLE SITE RIGHT RADIAL; BG TOTAL HEMOGLOBIN 8.5 g/dL (12.0-18.0); BG VENT MODE PRVC
[2020-07-02 12:37] LABS: PLATELET ESTIMATE DECREASED
[2020-07-02] MEDS: SODIUM CHLORIDE 0.45% 1,000 ML IV SCH (16:31)
[2020-07-02] MEDS: ENOXAPARIN 30MG/0.3ML SYR SUBCUT SCH (20:00)
[2020-07-03] VITALS (95 sets, daily range): BP systolic 100–186; BP diastolic 45–87
[2020-07-03] MEDS: IPRATROPIUM/ALBUTEROL 0.5-3(2.5)MG/3ML NEB HHN SCH ×5 (04:00→20:07)
[2020-07-03 05:22] LABS: HEMATOCRIT. 28.5 % (36.0-48.0); HEMOGLOBIN. 9.4 g/dL (12.0-16.0); MEAN CORPUSCULAR VOLUME 84.9 fL (81.0-99.0); MEAN PLATELET VOLUME 10.3 fl (7.4-10.4); PLATELET 123 x1000/uL (130-400); RED BLOOD CELL COUNT 3.35 mill/uL (4.2-5.4); RED CELL DISTRIBUTION WIDTH 14.6 % (11.6-14.6)
[2020-07-03 05:29] LABS: CHLORIDE 98 mEq/L (98-107)
[2020-07-03] MEDS: SODIUM CHLORIDE 0.45% 1,000 ML IV SCH (05:30)
[2020-07-03 05:34] LABS: PHOSPHORUS 5.5 mg/dL (2.5-4.9)
[2020-07-03] MEDS: FENTANYL CITRATE/PF 2,500 MCG in DEXT 5% WATER 200 ML IV PRN ×2 (07:44→21:40)
[2020-07-03] MEDS: MIDAZOLAM HCL 100 MG in DEXT 5% WATER 80 ML IV PRN ×2 (07:45→18:05)
[2020-07-03] MEDS: ACETAMINOPHEN 650MG/20.3ML UDC GT PRN (08:26)
[2020-07-03] MEDS: PANTOPRAZOLE SODIUM 40 MG/VIAL IV SCH (09:12)
[2020-07-03] MEDS: DEXAMETHASONE 10 MG/ML VIAL IV SCH (09:12)
[2020-07-03] MEDS: CALCIUM GLUCONATE 1GM PREMIX 50 ML IV SCH (09:12)
[2020-07-03] MEDS: CALCITRIOL 1 MCG/ML ORAL SYR PO SCH (09:12)
[2020-07-03] MEDS: CEFEPIME 1,000 MG in DEXTROSE 5% WATER 50 ML IV SCH ×2 (09:13→21:12)
[2020-07-03 10:18] LABS: PLATELET ESTIMATE SLIGHTLY DECREASED
[2020-07-03] MEDS: CALCIUM CARBONATE 500MG TABLET CHEW PO SCH ×2 (13:13→21:13)
[2020-07-03] MEDS: DOCUSATE SODIUM SUGAR FREE 100MG/10ML UDC NG SCH (13:13)
[2020-07-03 13:30] LABS: BG BASE EXCESS 3.5 mmol/L (-2.0-2.0); BG CARBOXYHEMOGLOBIN 0.2 % (0.5-1.5); BG DEOXYHEMOGLOBIN 1.3 % (0.0-5.0); BG FRACTION INSPIRED OXYGEN 100; BG HCO3 ACT 28.6 mmol/L (22.0-26.0); BG METHEMOGLOBIN 0.4 % (0.0-1.5); BG OXYGEN SATURATION 98.7 % (92.0-98.5); BG OXYHEMOGLOBIN 98.1 % (94.0-97.0); BG PCO2 46.3 mmHg (35.0-45.0); BG PH 7.409 (7.350-7.450); BG PO2 163.6 mmHg (75.0-100.0); BG SAMPLE SITE LEFT RADIAL; BG TOTAL HEMOGLOBIN 9.1 g/dL (12.0-18.0); BG TOTAL RESPIRATORY RATE 24 b/min; BG VENT MODE PRVC
[2020-07-03] MEDS: ENOXAPARIN 30MG/0.3ML SYR SUBCUT SCH (21:14)
[2020-07-04] VITALS (91 sets, daily range): BP systolic 110–151; BP diastolic 52–92
[2020-07-04] MEDS: IPRATROPIUM/ALBUTEROL 0.5-3(2.5)MG/3ML NEB HHN SCH ×6 (00:16→20:22)
[2020-07-04 05:23] LABS: CHLORIDE 96 mEq/L (98-107)
[2020-07-04 05:52] LABS: HEMATOCRIT. 24.6 % (36.0-48.0); HEMOGLOBIN. 8.2 g/dL (12.0-16.0); MEAN CORPUSCULAR HEMOGLOBIN 28.4 pg (28.0-32.0); MEAN CORPUSCULAR VOLUME 85.5 fL (81.0-99.0); MEAN PLATELET VOLUME 10.8 fl (7.4-10.4); PLATELET 114 x1000/uL (130-400); RED BLOOD CELL COUNT 2.87 mill/uL (4.2-5.4); RED CELL DISTRIBUTION WIDTH 14.5 % (11.6-14.6)
[2020-07-04] MEDS: SODIUM CHLORIDE 0.45% 1,000 ML IV SCH (06:33)
[2020-07-04] MEDS: CALCIUM CARBONATE 500MG TABLET CHEW PO SCH ×3 (06:33→22:05)
[2020-07-04 08:27] LABS: PLATELET ESTIMATE DECREASED
[2020-07-04] MEDS: DEXAMETHASONE 10 MG/ML VIAL IV SCH (09:45)
[2020-07-04] MEDS: DOCUSATE SODIUM SUGAR FREE 100MG/10ML UDC NG SCH (09:45)
[2020-07-04] MEDS: ERGOCALCIFEROL 50000UNITS CAPSULE PO SCH (09:45)
[2020-07-04] MEDS: CEFEPIME 1,000 MG in DEXTROSE 5% WATER 50 ML IV SCH ×2 (09:45→22:02)
[2020-07-04] MEDS: PANTOPRAZOLE SODIUM 40 MG/VIAL IV SCH (09:45)
[2020-07-04] MEDS: SODIUM CHLORIDE 0.9% 1,000 ML IV SCH (10:00)
[2020-07-04] MEDS: CALCITRIOL 1 MCG/ML ORAL SYR PO SCH (10:00)
[2020-07-04 10:14] LABS: BG BASE EXCESS 1.8 mmol/L (-2.0-2.0); BG CARBOXYHEMOGLOBIN 0.3 % (0.5-1.5); BG DEOXYHEMOGLOBIN 1.7 % (0.0-5.0); BG FRACTION INSPIRED OXYGEN 100; BG HCO3 ACT 26.6 mmol/L (22.0-26.0); BG METHEMOGLOBIN 0.2 % (0.0-1.5); BG OXYGEN SATURATION 98.3 % (92.0-98.5); BG OXYHEMOGLOBIN 97.8 % (94.0-97.0); BG PCO2 42.8 mmHg (35.0-45.0); BG PH 7.412 (7.350-7.450); BG PO2 129.6 mmHg (75.0-100.0); BG SAMPLE SITE RIGHT RADIAL; BG TOTAL HEMOGLOBIN 8.4 g/dL (12.0-18.0); BG VENT MODE VENT - PRVC
[2020-07-04] MEDS ORDERED: CALCIUM GLUCONATE 1GM PREMIX 50 ML IV SCH (11:00)
[2020-07-04] MEDS: MIDAZOLAM HCL 100 MG in DEXT 5% WATER 80 ML IV PRN (12:31)
[2020-07-04] MEDS: FENTANYL CITRATE/PF 2,500 MCG in DEXT 5% WATER 200 ML IV PRN (17:38)
[2020-07-04] MEDS: ENOXAPARIN 30MG/0.3ML SYR SUBCUT SCH (20:00)
[2020-07-04] MEDS: FAMOTIDINE 20MG TABLET PO SCH (22:02)
[2020-07-05] VITALS (90 sets, daily range): BP systolic 90–179; BP diastolic 34–94
[2020-07-05] MEDS: IPRATROPIUM/ALBUTEROL 0.5-3(2.5)MG/3ML NEB HHN SCH ×6 (03:59→20:35)
[2020-07-05] MEDS: CALCIUM CARBONATE 500MG TABLET CHEW PO SCH ×3 (05:12→22:04)
[2020-07-05 06:08] LABS: HEMATOCRIT. 23.7 % (36.0-48.0); MEAN CORPUSCULAR HEMOGLOBIN 28.8 pg (28.0-32.0); MEAN PLATELET VOLUME 11.1 fl (7.4-10.4); PLATELET 132 x1000/uL (130-400); RED BLOOD CELL COUNT 2.79 mill/uL (4.2-5.4); RED CELL DISTRIBUTION WIDTH 14.9 % (11.6-14.6)
[2020-07-05 06:13] LABS: CHLORIDE 95 mEq/L (98-107)
[2020-07-05 06:20] LABS: PHOSPHORUS 5.2 mg/dL (2.5-4.9)
[2020-07-05] MEDS: MIDAZOLAM HCL 100 MG in DEXT 5% WATER 80 ML IV PRN ×2 (07:08→15:35)
[2020-07-05 08:38] LABS: BG BASE EXCESS 2.4 mmol/L (-2.0-2.0); BG CARBOXYHEMOGLOBIN 0.3 % (0.5-1.5); BG DEOXYHEMOGLOBIN 20.3 % (0.0-5.0); BG HCO3 ACT 27.6 mmol/L (22.0-26.0); BG METHEMOGLOBIN 0.2 % (0.0-1.5); BG OXYGEN SATURATION 79.6 % (92.0-98.5); BG OXYHEMOGLOBIN 79.2 % (94.0-97.0); BG PCO2 45.4 mmHg (35.0-45.0); BG PH 7.402 (7.350-7.450); BG PO2 45.1 mmHg (75.0-100.0); BG SAMPLE SITE RIGHT RADIAL; BG TOTAL HEMOGLOBIN 11.1 g/dL (12.0-18.0); BG VENT MODE VENT- PRVC
[2020-07-05] MEDS: SODIUM CHLORIDE 0.9% 1,000 ML IV SCH (09:00)
[2020-07-05] MEDS ORDERED: NOREPINEPHRINE 32 MG in SODIUM CHLORIDE 0.9% 218 ML IV PRN (09:00)
[2020-07-05] MEDS: CALCITRIOL 1 MCG/ML ORAL SYR PO SCH (09:04)
[2020-07-05] MEDS: FAMOTIDINE 20MG TABLET PO SCH ×2 (09:04→22:04)
[2020-07-05] MEDS: CALCIUM GLUCONATE 1GM PREMIX 50 ML IV SCH ×2 (09:05→22:02)
[2020-07-05] MEDS ORDERED: MAGNESIUM 2 G PREMIX 50 ML IV SCH (10:00)
[2020-07-05] MEDS ORDERED: FENTANYL CITRATE/PF 2,500 MCG in SODIUM CHLORIDE 0.9% 200 ML IV PRN (10:00)
[2020-07-05] MEDS ORDERED: MAGNESIUM CITRATE 300ML SOLUTION PO SCH (10:00)
[2020-07-05] MEDS: DOCUSATE SODIUM SUGAR FREE 100MG/10ML UDC NG SCH (11:20)
[2020-07-05] MEDS: METOCLOPRAMIDE HCL 10MG/2ML VIAL IV SCH ×2 (11:33→17:46)
[2020-07-05] MEDS: FENTANYL CITRATE/PF 2,500 MCG in DEXT 5% WATER 200 ML IV PRN (12:42)
[2020-07-05 14:12] LABS: BG BASE EXCESS 3.7 mmol/L (-2.0-2.0); BG CARBOXYHEMOGLOBIN 0.3 % (0.5-1.5); BG DEOXYHEMOGLOBIN 9.5 % (0.0-5.0); BG HCO3 ACT 28.2 mmol/L (22.0-26.0); BG METHEMOGLOBIN 0.1 % (0.0-1.5); BG OXYGEN SATURATION 90.5 % (92.0-98.5); BG OXYHEMOGLOBIN 90.1 % (94.0-97.0); BG PCO2 42.6 mmHg (35.0-45.0); BG PH 7.439 (7.350-7.450); BG PO2 60.8 mmHg (75.0-100.0); BG SAMPLE SITE RIGHT RADIAL; BG TOTAL HEMOGLOBIN 9.8 g/dL (12.0-18.0); BG VENT MODE VENT- PRVC
[2020-07-05 14:40] LABS: PLATELET ESTIMATE NORMAL
[2020-07-05] MEDS: ACETAMINOPHEN 650MG/20.3ML UDC GT PRN (17:34)
[2020-07-05] MEDS: LACTULOSE 20G/30ML UDC PO PRN (22:06)
[2020-07-06] VITALS (100 sets, daily range): BP systolic 81–170; BP diastolic 34–79
[2020-07-06] MEDS: IPRATROPIUM/ALBUTEROL 0.5-3(2.5)MG/3ML NEB HHN SCH ×5 (00:26→16:26)
[2020-07-06] MEDS: MIDAZOLAM HCL 100 MG in DEXT 5% WATER 80 ML IV PRN ×3 (00:59→22:50)
[2020-07-06] MEDS: METOCLOPRAMIDE HCL 10MG/2ML VIAL IV SCH ×5 (00:59→23:10)
[2020-07-06] MEDS: CALCIUM CARBONATE 500MG TABLET CHEW PO SCH ×3 (05:00→22:04)
[2020-07-06 06:00] LABS: CHLORIDE 96 mEq/L (98-107)
[2020-07-06 06:02] LABS: HEMATOCRIT. 25.9 % (36.0-48.0); HEMOGLOBIN. 8.6 g/dL (12.0-16.0); MEAN CORPUSCULAR HEMOGLOBIN 28.4 pg (28.0-32.0); MEAN CORPUSCULAR VOLUME 85.5 fL (81.0-99.0); MEAN PLATELET VOLUME 10.7 fl (7.4-10.4); PLATELET 148 x1000/uL (130-400); RED BLOOD CELL COUNT 3.03 mill/uL (4.2-5.4); RED CELL DISTRIBUTION WIDTH 14.6 % (11.6-14.6)
[2020-07-06] MEDS: DEXT 5%/0.9% NACL 1,000 ML IV SCH (08:54)
[2020-07-06] MEDS ORDERED: CALCIUM GLUCONATE 1GM PREMIX 50 ML IV SCH (09:00)
[2020-07-06] MEDS ORDERED: MAGNESIUM CITRATE 300ML SOLUTION PO NR (09:00)
[2020-07-06] MEDS: DOCUSATE SODIUM SUGAR FREE 100MG/10ML UDC NG SCH (09:00)
[2020-07-06] MEDS: FAMOTIDINE 20MG TABLET PO SCH (09:01)
[2020-07-06 09:16] LABS: BG BASE EXCESS 0.4 mmol/L (-2.0-2.0); BG CARBOXYHEMOGLOBIN 0.3 % (0.5-1.5); BG DEOXYHEMOGLOBIN 14.6 % (0.0-5.0); BG FRACTION INSPIRED OXYGEN 100; BG HCO3 ACT 26.6 mmol/L (22.0-26.0); BG METHEMOGLOBIN 0.3 % (0.0-1.5); BG OXYGEN SATURATION 85.3 % (92.0-98.5); BG OXYHEMOGLOBIN 84.8 % (94.0-97.0); BG PCO2 51.7 mmHg (35.0-45.0); BG PO2 52.9 mmHg (75.0-100.0); BG SAMPLE SITE RIGHT RADIAL; BG TOTAL HEMOGLOBIN 8.3 g/dL (12.0-18.0); BG VENT MODE VENT - PRVC
[2020-07-06] MEDS: CALCITRIOL 1 MCG/ML ORAL SYR PO SCH (11:47)
[2020-07-06] MEDS: FENTANYL CITRATE/PF 2,500 MCG in SODIUM CHLORIDE 0.9% 200 ML IV PRN ×2 (13:23→22:51)
[2020-07-06] MEDS ORDERED: ONDANSETRON HCL 4MG/2ML INJ IV PRN (13:30)
[2020-07-06] MEDS: PANTOPRAZOLE SODIUM 40 MG/VIAL IV SCH (14:25)
[2020-07-06 18:49] LABS: PLATELET ESTIMATE NORMAL
[2020-07-07] VITALS (99 sets, daily range): BP systolic 97–204; BP diastolic 35–84
[2020-07-07] MEDS: IPRATROPIUM/ALBUTEROL 0.5-3(2.5)MG/3ML NEB HHN SCH ×5 (01:06→20:05)
[2020-07-07] MEDS: CALCIUM CARBONATE 500MG TABLET CHEW PO SCH ×3 (05:03→22:31)
[2020-07-07] MEDS: METOCLOPRAMIDE HCL 10MG/2ML VIAL IV SCH ×3 (05:03→18:19)
[2020-07-07] MEDS: ACETAMINOPHEN 650MG/20.3ML UDC GT PRN (05:04)
[2020-07-07 06:08] LABS: BASOPHILS % 0.3 % (0.0-2.0); EOSINOPHILS % 1.5 % (0.0-5.0); LYMPHOCYTES % 5.8 % (20.0-50.0); MEAN CORPUSCULAR HEMOGLOBIN 28.2 pg (28.0-32.0); MEAN CORPUSCULAR VOLUME 85.1 fL (81.0-99.0); MEAN PLATELET VOLUME 10.3 fl (7.4-10.4); MONOCYTES % 2.1 % (2.0-8.0); NEUTROPHILS % 90.3 % (40.0-76.0); PLATELET 204 x1000/uL (130-400); RED BLOOD CELL COUNT 2.47 mill/uL (4.2-5.4); RED CELL DISTRIBUTION WIDTH 15.2 % (11.6-14.6)
[2020-07-07 07:29] LABS: BG BASE EXCESS 2.9 mmol/L (-2.0-2.0); BG CARBOXYHEMOGLOBIN 0.5 % (0.5-1.5); BG DEOXYHEMOGLOBIN 5.4 % (0.0-5.0); BG HCO3 ACT 29.7 mmol/L (22.0-26.0); BG METHEMOGLOBIN 0.4 % (0.0-1.5); BG OXYGEN SATURATION 94.6 % (92.0-98.5); BG OXYHEMOGLOBIN 93.7 % (94.0-97.0); BG PCO2 62.1 mmHg (35.0-45.0); BG PH 7.298 (7.350-7.450); BG PO2 78.7 mmHg (75.0-100.0); BG SAMPLE SITE RIGHT RADIAL; BG TOTAL HEMOGLOBIN 6.5 g/dL (12.0-18.0)
[2020-07-07] MEDS: FENTANYL CITRATE/PF 2,500 MCG in SODIUM CHLORIDE 0.9% 200 ML IV PRN ×2 (08:22→16:42)
[2020-07-07] MEDS: MIDAZOLAM HCL 100 MG in DEXT 5% WATER 80 ML IV PRN ×2 (08:24→16:42)
[2020-07-07] MEDS ORDERED: FAMOTIDINE 20MG TABLET PO SCH (09:00)
[2020-07-07] MEDS: PANTOPRAZOLE SODIUM 40 MG/VIAL IV SCH ×3 (09:02→21:18)
[2020-07-07] MEDS: DOCUSATE SODIUM SUGAR FREE 100MG/10ML UDC NG SCH (09:02)
[2020-07-07] MEDS: CALCITRIOL 1 MCG/ML ORAL SYR PO SCH (09:02)
[2020-07-07 09:29] LABS: PLATELET ESTIMATE NORMAL
[2020-07-07 09:50] LABS: CLARITY URINE TURBID (CLEAR); KETONES URINE NEGATIVE (NEGATIVE); LEUKOCYTE ESTERASE URINE 3+ (NEGATIVE); NITRITE URINE NEGATIVE (NEGATIVE); OCCULT BLOOD URINE 3+ (NEGATIVE); PH URINE 5.5 (4.5-8.0); PROTEIN URINE 2+ (NEGATIVE); SPECIFIC GRAVITY URINE 1.016 (1.005-1.030); UROBILINOGEN URINE 0.2 E.U./dL (0.2-1.0)
[2020-07-07 09:58] LABS: COLOR URINE DARK YELLOW (YELLOW)
[2020-07-07] MEDS: DEXT 5%/0.9% NACL 1,000 ML IV SCH (12:38)
[2020-07-07] MEDS: SUCRALFATE 1 G/10 ML UDC PO SCH ×3 (15:03→21:19)
[2020-07-07 21:05] LABS: HEMOGLOBIN 10.2 g/dL (12.0-16.0)
[2020-07-07 21:15] LABS: PARTIAL THROMBOPLASTIN TIME 29.9 sec (23.4-31.0)
[2020-07-07 21:28] LABS: TOTAL IRON BINDING CAPACITY 287 ug/dL (250-450)
[2020-07-07 21:50] LABS: VITAMIN B12 SERUM >2000 pg/mL pg/mL (211-911)
[2020-07-07 21:57] LABS: FERRITIN 1573 ng/mL (10-291)
[2020-07-08] VITALS (84 sets, daily range): BP systolic 108–163; BP diastolic 44–65
[2020-07-08] MEDS: IPRATROPIUM/ALBUTEROL 0.5-3(2.5)MG/3ML NEB HHN SCH ×6 (00:03→21:58)
[2020-07-08] MEDS: METOCLOPRAMIDE HCL 10MG/2ML VIAL IV SCH ×4 (01:20→18:03)
[2020-07-08] MEDS: FENTANYL CITRATE/PF 2,500 MCG in SODIUM CHLORIDE 0.9% 200 ML IV PRN (05:31)
[2020-07-08] MEDS: MIDAZOLAM HCL 100 MG in DEXT 5% WATER 80 ML IV PRN (05:34)
[2020-07-08 05:39] LABS: HEMOGLOBIN. 9.6 g/dL (12.0-16.0); MEAN CORPUSCULAR HEMOGLOBIN 29.5 pg (28.0-32.0); MEAN CORPUSCULAR VOLUME 86.2 fL (81.0-99.0); MEAN PLATELET VOLUME 9.3 fl (7.4-10.4); PLATELET 191 x1000/uL (130-400); RED BLOOD CELL COUNT 3.25 mill/uL (4.2-5.4); RED CELL DISTRIBUTION WIDTH 14.3 % (11.6-14.6)
[2020-07-08] MEDS: CALCIUM CARBONATE 500MG TABLET CHEW PO SCH ×3 (05:42→22:10)
[2020-07-08 09:11] LABS: PLATELET ESTIMATE NORMAL
[2020-07-08 10:12] LABS: BG BASE EXCESS -0.5 mmol/L (-2.0-2.0); BG CARBOXYHEMOGLOBIN 0.9 % (0.5-1.5); BG DEOXYHEMOGLOBIN 3.8 % (0.0-5.0); BG FRACTION INSPIRED OXYGEN 100; BG HCO3 ACT 27.1 mmol/L (22.0-26.0); BG METHEMOGLOBIN 0.3 % (0.0-1.5); BG OXYGEN SATURATION 96.2 % (92.0-98.5); BG PCO2 60.3 mmHg (35.0-45.0); BG PH 7.271 (7.350-7.450); BG PO2 85.7 mmHg (75.0-100.0); BG SAMPLE SITE RIGHT RADIAL; BG TOTAL HEMOGLOBIN 10.7 g/dL (12.0-18.0); BG VENT MODE PRVC
[2020-07-08] MEDS: PANTOPRAZOLE SODIUM 40 MG/VIAL IV SCH ×2 (10:38→22:10)
[2020-07-08] MEDS: DOCUSATE SODIUM SUGAR FREE 100MG/10ML UDC NG SCH (10:39)
[2020-07-08] MEDS: SUCRALFATE 1 G/10 ML UDC PO SCH ×4 (10:39→22:10)
[2020-07-08] MEDS: CALCITRIOL 1 MCG/ML ORAL SYR PO SCH (10:42)
[2020-07-08] MEDS: DEXT 5%/0.9% NACL 1,000 ML IV SCH (17:59)
[2020-07-09] VITALS (85 sets, daily range): BP systolic 93–147; BP diastolic 39–67
[2020-07-09] MEDS: FENTANYL CITRATE/PF 2,500 MCG in SODIUM CHLORIDE 0.9% 200 ML IV PRN ×3 (00:28→20:47)
[2020-07-09] MEDS: METOCLOPRAMIDE HCL 10MG/2ML VIAL IV SCH ×4 (00:28→18:38)
[2020-07-09] MEDS: IPRATROPIUM/ALBUTEROL 0.5-3(2.5)MG/3ML NEB HHN SCH ×6 (00:43→20:56)
[2020-07-09] MEDS: MIDAZOLAM HCL 100 MG in DEXT 5% WATER 80 ML IV PRN ×4 (04:06→23:14)
[2020-07-09 05:52] LABS: HEMATOCRIT. 26.2 % (36.0-48.0); MEAN CORPUSCULAR HEMOGLOBIN 29.9 pg (28.0-32.0); MEAN CORPUSCULAR VOLUME 87.1 fL (81.0-99.0); MEAN PLATELET VOLUME 9.3 fl (7.4-10.4); PLATELET 159 x1000/uL (130-400); RED BLOOD CELL COUNT 3.01 mill/uL (4.2-5.4); RED CELL DISTRIBUTION WIDTH 14.6 % (11.6-14.6)
[2020-07-09] MEDS: CALCIUM CARBONATE 500MG TABLET CHEW PO SCH ×3 (08:17→22:00)
[2020-07-09 08:57] LABS: BG BASE EXCESS 0.6 mmol/L (-2.0-2.0); BG CARBOXYHEMOGLOBIN 0.9 % (0.5-1.5); BG DEOXYHEMOGLOBIN 7.7 % (0.0-5.0); BG HCO3 ACT 28.4 mmol/L (22.0-26.0); BG METHEMOGLOBIN 0.3 % (0.0-1.5); BG OXYGEN SATURATION 92.2 % (92.0-98.5); BG OXYHEMOGLOBIN 91.1 % (94.0-97.0); BG PCO2 64.9 mmHg (35.0-45.0); BG PH 7.259 (7.350-7.450); BG PO2 66.2 mmHg (75.0-100.0); BG SAMPLE SITE RIGHT RADIAL; BG TOTAL HEMOGLOBIN 9.2 g/dL (12.0-18.0); BG VENT MODE VENT- PRVC
[2020-07-09] MEDS ORDERED: CALCIUM GLUCONATE 1GM PREMIX 50 ML IV SCH (09:00)
[2020-07-09] MEDS ORDERED: MAGNESIUM CITRATE 300ML SOLUTION PO NR (10:00)
[2020-07-09] MEDS: DOCUSATE SODIUM SUGAR FREE 100MG/10ML UDC NG SCH (10:23)
[2020-07-09] MEDS: DEXT 5%/0.9% NACL 1,000 ML IV SCH ×2 (10:24→22:43)
[2020-07-09] MEDS: PANTOPRAZOLE SODIUM 40 MG/VIAL IV SCH ×2 (10:24→21:00)
[2020-07-09] MEDS: CALCITRIOL 1 MCG/ML ORAL SYR PO SCH (10:26)
[2020-07-09] MEDS: SUCRALFATE 1 G/10 ML UDC PO SCH ×4 (10:27→21:00)
[2020-07-09 13:04] LABS: NUCLEATED RED BLOOD CELLS 2 /100 WBC; PLATELET ESTIMATE NORMAL
[2020-07-09] MEDS: NOREPINEPHRINE 32 MG in SODIUM CHLORIDE 0.9% 218 ML IV PRN (17:37)
[2020-07-10] VITALS (94 sets, daily range): BP systolic 54–151; BP diastolic 26–80
[2020-07-10] MEDS: IPRATROPIUM/ALBUTEROL 0.5-3(2.5)MG/3ML NEB HHN SCH ×6 (00:37→21:00)
[2020-07-10] MEDS: METOCLOPRAMIDE HCL 10MG/2ML VIAL IV SCH ×5 (02:01→23:28)
[2020-07-10] MEDS: FENTANYL CITRATE/PF 2,500 MCG in SODIUM CHLORIDE 0.9% 200 ML IV PRN ×3 (04:55→23:50)
[2020-07-10] MEDS: CALCIUM CARBONATE 500MG TABLET CHEW PO SCH ×3 (06:00→20:38)
[2020-07-10 06:02] LABS: HEMATOCRIT. 28.7 % (36.0-48.0); HEMOGLOBIN. 9.5 g/dL (12.0-16.0); MEAN CORPUSCULAR HEMOGLOBIN 29.1 pg (28.0-32.0); MEAN PLATELET VOLUME 9.2 fl (7.4-10.4); PLATELET 166 x1000/uL (130-400); RED BLOOD CELL COUNT 3.27 mill/uL (4.2-5.4)
[2020-07-10 06:25] LABS: CHLORIDE 101 mEq/L (98-107)
[2020-07-10 06:35] LABS: PHOSPHORUS 3.8 mg/dL (2.5-4.9)
[2020-07-10] MEDS: MIDAZOLAM HCL 100 MG in DEXT 5% WATER 80 ML IV PRN ×2 (06:55→17:33)
[2020-07-10 08:46] LABS: BG BASE EXCESS -2.7 mmol/L (-2.0-2.0); BG CARBOXYHEMOGLOBIN 1.1 % (0.5-1.5); BG DEOXYHEMOGLOBIN 15.9 % (0.0-5.0); BG HCO3 ACT 25.5 mmol/L (22.0-26.0); BG METHEMOGLOBIN 0.2 % (0.0-1.5); BG OXYGEN SATURATION 83.9 % (92.0-98.5); BG OXYHEMOGLOBIN 82.8 % (94.0-97.0); BG PCO2 63.2 mmHg (35.0-45.0); BG PH 7.223 (7.350-7.450); BG PO2 48.3 mmHg (75.0-100.0); BG SAMPLE SITE RIGHT RADIAL; BG TOTAL HEMOGLOBIN 9.4 g/dL (12.0-18.0); BG VENT MODE VENT- PRVC
[2020-07-10] MEDS: DOCUSATE SODIUM SUGAR FREE 100MG/10ML UDC NG SCH (09:43)
[2020-07-10] MEDS: PANTOPRAZOLE SODIUM 40 MG/VIAL IV SCH ×2 (09:43→20:38)
[2020-07-10] MEDS: MIDODRINE HCL 5MG TABLET PO SCH ×3 (09:44→17:15)
[2020-07-10] MEDS: SUCRALFATE 1 G/10 ML UDC PO SCH ×4 (10:05→20:38)
[2020-07-10] MEDS: CALCITRIOL 1 MCG/ML ORAL SYR PO SCH (10:05)
[2020-07-10 10:45] LABS: NUCLEATED RED BLOOD CELLS 1 /100 WBC; PLATELET ESTIMATE NORMAL
[2020-07-10] MEDS ORDERED: PHENYLEPHRINE 100 MG in DEXT 5% WATER 240 ML IV PRN (15:00)
[2020-07-10] MEDS: DEXT 5%/0.9% NACL 1,000 ML IV SCH (23:49)
[2020-07-11] VITALS (96 sets, daily range): BP systolic 95–137; BP diastolic 42–84
[2020-07-11] MEDS: IPRATROPIUM/ALBUTEROL 0.5-3(2.5)MG/3ML NEB HHN SCH ×6 (00:39→21:34)
[2020-07-11] MEDS: MIDAZOLAM HCL 100 MG in DEXT 5% WATER 80 ML IV PRN ×3 (04:00→20:35)
[2020-07-11 05:28] LABS: HEMATOCRIT. 26.8 % (36.0-48.0); HEMOGLOBIN. 8.8 g/dL (12.0-16.0); MEAN CORPUSCULAR HEMOGLOBIN 29.2 pg (28.0-32.0); MEAN CORPUSCULAR VOLUME 88.8 fL (81.0-99.0); PLATELET 167 x1000/uL (130-400); RED BLOOD CELL COUNT 3.02 mill/uL (4.2-5.4); RED CELL DISTRIBUTION WIDTH 15.2 % (11.6-14.6)
[2020-07-11 05:44] LABS: CHLORIDE 103 mEq/L (98-107)
[2020-07-11 05:59] LABS: PHOSPHORUS 3.8 mg/dL (2.5-4.9)
[2020-07-11] MEDS: METOCLOPRAMIDE HCL 10MG/2ML VIAL IV SCH ×3 (06:37→18:19)
[2020-07-11] MEDS: CALCIUM CARBONATE 500MG TABLET CHEW PO SCH ×3 (06:37→21:07)
[2020-07-11] MEDS: FENTANYL CITRATE/PF 2,500 MCG in SODIUM CHLORIDE 0.9% 200 ML IV PRN ×2 (07:05→16:31)
[2020-07-11] MEDS: MIDODRINE HCL 5MG TABLET PO SCH ×3 (08:16→16:34)
[2020-07-11] MEDS: PANTOPRAZOLE SODIUM 40 MG/VIAL IV SCH ×2 (08:16→20:37)
[2020-07-11] MEDS: SUCRALFATE 1 G/10 ML UDC PO SCH ×4 (08:16→20:37)
[2020-07-11] MEDS: ERGOCALCIFEROL 50000UNITS CAPSULE PO SCH (08:16)
[2020-07-11] MEDS: DOCUSATE SODIUM SUGAR FREE 100MG/10ML UDC NG SCH (08:16)
[2020-07-11] MEDS: CALCITRIOL 1 MCG/ML ORAL SYR PO SCH (08:17)
[2020-07-11 08:37] LABS: PLATELET ESTIMATE NORMAL
[2020-07-11 10:31] LABS: BG CARBOXYHEMOGLOBIN 0.5 % (0.5-1.5); BG DEOXYHEMOGLOBIN 2.2 % (0.0-5.0); BG FRACTION INSPIRED OXYGEN 100; BG HCO3 ACT 25.8 mmol/L (22.0-26.0); BG METHEMOGLOBIN 0.1 % (0.0-1.5); BG OXYGEN SATURATION 97.8 % (92.0-98.5); BG OXYHEMOGLOBIN 97.2 % (94.0-97.0); BG PCO2 60.1 mmHg (35.0-45.0); BG PO2 107.4 mmHg (75.0-100.0); BG SAMPLE SITE RIGHT RADIAL; BG TOTAL HEMOGLOBIN 9.7 g/dL (12.0-18.0); BG VENT MODE PRVC
[2020-07-11] MEDS: LACTULOSE 20G/30ML UDC PO PRN (21:23)
[2020-07-11] MEDS: DEXT 5%/0.9% NACL 1,000 ML IV SCH (21:46)
[2020-07-12] VITALS (92 sets, daily range): BP systolic 79–175; BP diastolic 33–88
[2020-07-12] MEDS: FENTANYL CITRATE/PF 2,500 MCG in SODIUM CHLORIDE 0.9% 200 ML IV PRN ×4 (00:46→23:36)
[2020-07-12] MEDS: METOCLOPRAMIDE HCL 10MG/2ML VIAL IV SCH ×4 (00:50→17:14)
[2020-07-12] MEDS: IPRATROPIUM/ALBUTEROL 0.5-3(2.5)MG/3ML NEB HHN SCH ×6 (00:59→20:33)
[2020-07-12] MEDS: MIDAZOLAM HCL 100 MG in DEXT 5% WATER 80 ML IV PRN ×4 (03:59→23:37)
[2020-07-12] MEDS: CALCIUM CARBONATE 500MG TABLET CHEW PO SCH ×3 (05:12→21:49)
[2020-07-12 05:43] LABS: HEMATOCRIT. 26.1 % (36.0-48.0); HEMOGLOBIN. 8.9 g/dL (12.0-16.0); MEAN CORPUSCULAR VOLUME 88.5 fL (81.0-99.0); MEAN PLATELET VOLUME 8.6 fl (7.4-10.4); PLATELET 179 x1000/uL (130-400); RED BLOOD CELL COUNT 2.95 mill/uL (4.2-5.4); RED CELL DISTRIBUTION WIDTH 15.3 % (11.6-14.6)
[2020-07-12 05:46] LABS: CHLORIDE 105 mEq/L (98-107)
[2020-07-12 07:53] LABS: BG BASE EXCESS -2.1 mmol/L (-2.0-2.0); BG CARBOXYHEMOGLOBIN 0.7 % (0.5-1.5); BG DEOXYHEMOGLOBIN 32.1 % (0.0-5.0); BG HCO3 ACT 25.6 mmol/L (22.0-26.0); BG METHEMOGLOBIN 0.2 % (0.0-1.5); BG OXYGEN SATURATION 67.6 % (92.0-98.5); BG PH 7.248 (7.350-7.450); BG PO2 35.1 mmHg (75.0-100.0); BG SAMPLE SITE RIGHT RADIAL; BG TOTAL HEMOGLOBIN 9.4 g/dL (12.0-18.0); BG VENT MODE VENT- PRVC
[2020-07-12] MEDS ORDERED: PROPOFOL 10MG/ML 100ML 100 ML IV PRN (08:00)
[2020-07-12 08:01] LABS: NUCLEATED RED BLOOD CELLS 2 /100 WBC
[2020-07-12 08:02] LABS: PLATELET ESTIMATE NORMAL
[2020-07-12] MEDS: DOCUSATE SODIUM SUGAR FREE 100MG/10ML UDC NG SCH (08:53)
[2020-07-12] MEDS: PANTOPRAZOLE SODIUM 40 MG/VIAL IV SCH ×2 (08:54→21:05)
[2020-07-12] MEDS: SUCRALFATE 1 G/10 ML UDC PO SCH ×4 (08:54→21:05)
[2020-07-12] MEDS: MIDODRINE HCL 5MG TABLET PO SCH ×3 (08:57→16:14)
[2020-07-12] MEDS: CEFEPIME 1,000 MG in DEXTROSE 5% WATER 50 ML IV SCH ×2 (12:04→23:07)
[2020-07-12] MEDS: CALCIUM GLUCONATE 1,000 MG in DEXT 5% WATER 90 ML IV SCH (12:04)
[2020-07-12] MEDS: CALCITRIOL 1 MCG/ML ORAL SYR PO SCH (12:06)
[2020-07-12] MEDS ORDERED: SODIUM CHLORIDE 0.9% 500 ML IV NR (16:45)
[2020-07-12] MEDS: NOREPINEPHRINE 32 MG in SODIUM CHLORIDE 0.9% 218 ML IV PRN (19:09)
[2020-07-12] MEDS: PROPOFOL 10MG/ML 100ML 100 ML IV PRN ×2 (19:10→22:44)
[2020-07-13] VITALS (57 sets, daily range): BP systolic 87–124; BP diastolic 36–65
[2020-07-13] MEDS ORDERED: METOCLOPRAMIDE HCL 10MG/2ML VIAL IV SCH
[2020-07-13] MEDS: IPRATROPIUM/ALBUTEROL 0.5-3(2.5)MG/3ML NEB HHN SCH ×6 (00:10→20:36)
[2020-07-13] MEDS: METOCLOPRAMIDE HCL 10MG/2ML VIAL IV SCH ×5 (00:13→23:16)
[2020-07-13] MEDS: DEXT 5%/0.9% NACL 1,000 ML IV SCH (01:15)
[2020-07-13] MEDS: PROPOFOL 10MG/ML 100ML 100 ML IV PRN ×5 (04:32→19:30)
[2020-07-13 05:47] LABS: HEMATOCRIT. 25.6 % (36.0-48.0); HEMOGLOBIN. 8.2 g/dL (12.0-16.0); MEAN CORPUSCULAR HEMOGLOBIN 28.9 pg (28.0-32.0); MEAN PLATELET VOLUME 8.6 fl (7.4-10.4); PLATELET 148 x1000/uL (130-400); RED BLOOD CELL COUNT 2.84 mill/uL (4.2-5.4); RED CELL DISTRIBUTION WIDTH 15.9 % (11.6-14.6)
[2020-07-13 05:59] LABS: CHLORIDE 105 mEq/L (98-107)
[2020-07-13 06:09] LABS: PHOSPHORUS 3.6 mg/dL (2.5-4.9)
[2020-07-13] MEDS: CALCIUM CARBONATE 500MG TABLET CHEW PO SCH ×3 (06:29→22:21)
[2020-07-13] MEDS: FENTANYL CITRATE/PF 2,500 MCG in SODIUM CHLORIDE 0.9% 200 ML IV PRN ×3 (07:17→22:00)
[2020-07-13] MEDS: MIDAZOLAM HCL 100 MG in DEXT 5% WATER 80 ML IV PRN ×2 (07:17→14:07)
[2020-07-13 07:43] LABS: NUCLEATED RED BLOOD CELLS 1 /100 WBC
[2020-07-13 07:44] LABS: PLATELET ESTIMATE NORMAL
[2020-07-13] MEDS: DOCUSATE SODIUM SUGAR FREE 100MG/10ML UDC NG SCH (09:21)
[2020-07-13] MEDS: SUCRALFATE 1 G/10 ML UDC PO SCH ×4 (09:21→21:19)
[2020-07-13] MEDS: MIDODRINE HCL 5MG TABLET PO SCH ×3 (09:22→18:35)
[2020-07-13] MEDS: CALCITRIOL 1 MCG/ML ORAL SYR PO SCH (09:22)
[2020-07-13] MEDS: PANTOPRAZOLE SODIUM 40 MG/VIAL IV SCH ×2 (09:22→21:19)
[2020-07-13 09:41] LABS: BG BASE EXCESS -11.1 mmol/L (-2.0-2.0); BG CARBOXYHEMOGLOBIN 0.8 % (0.5-1.5); BG DEOXYHEMOGLOBIN 1.3 % (0.0-5.0); BG FRACTION INSPIRED OXYGEN 100; BG HCO3 ACT 17.3 mmol/L (22.0-26.0); BG METHEMOGLOBIN 0.1 % (0.0-1.5); BG OXYGEN SATURATION 98.7 % (92.0-98.5); BG OXYHEMOGLOBIN 97.8 % (94.0-97.0); BG PCO2 52.1 mmHg (35.0-45.0); BG PO2 125.6 mmHg (75.0-100.0); BG SAMPLE SITE RIGHT RADIAL; BG TOTAL HEMOGLOBIN 8.2 g/dL (12.0-18.0); BG VENT MODE VENT - PRVC
[2020-07-13] MEDS ORDERED: SODIUM BICARBONATE 8.4% 1 MEQ/ML 50ML SYR IV NR (10:00)
[2020-07-13] MEDS: CEFEPIME 1,000 MG in DEXTROSE 5% WATER 50 ML IV SCH ×2 (11:43→23:16)
[2020-07-14] VITALS (74 sets, daily range): BP systolic 88–173; BP diastolic 32–53
[2020-07-14] MEDS: PROPOFOL 10MG/ML 100ML 100 ML IV PRN ×5 (00:06→21:01)
[2020-07-14] MEDS: IPRATROPIUM/ALBUTEROL 0.5-3(2.5)MG/3ML NEB HHN SCH ×6 (00:28→21:02)
[2020-07-14] MEDS: DEXT 5%/0.9% NACL 1,000 ML IV SCH ×2 (02:27→07:03)
[2020-07-14] MEDS: MIDAZOLAM HCL 100 MG in DEXT 5% WATER 80 ML IV PRN (04:24)
[2020-07-14] MEDS: CALCIUM CARBONATE 500MG TABLET CHEW PO SCH ×3 (05:33→21:05)
[2020-07-14] MEDS: FENTANYL CITRATE/PF 2,500 MCG in SODIUM CHLORIDE 0.9% 200 ML IV PRN ×2 (06:51→14:24)
[2020-07-14] MEDS: METOCLOPRAMIDE HCL 10MG/2ML VIAL IV SCH ×3 (07:03→18:39)
[2020-07-14 09:57] LABS: BG BASE EXCESS -12.8 mmol/L (-2.0-2.0); BG CARBOXYHEMOGLOBIN 0.3 % (0.5-1.5); BG DEOXYHEMOGLOBIN 2.1 % (0.0-5.0); BG FRACTION INSPIRED OXYGEN 100; BG HCO3 ACT 16.3 mmol/L (22.0-26.0); BG METHEMOGLOBIN 0.7 % (0.0-1.5); BG OXYGEN SATURATION 97.9 % (92.0-98.5); BG OXYHEMOGLOBIN 96.9 % (94.0-97.0); BG PCO2 53.7 mmHg (35.0-45.0); BG PH 7.099 (7.350-7.450); BG PO2 123.6 mmHg (75.0-100.0); BG SAMPLE SITE RIGHT RADIAL; BG TOTAL HEMOGLOBIN 8.6 g/dL (12.0-18.0); BG VENT MODE VENT - PRVC
[2020-07-14] MEDS: PANTOPRAZOLE SODIUM 40 MG/VIAL IV SCH ×2 (10:01→21:05)
[2020-07-14] MEDS: DOCUSATE SODIUM SUGAR FREE 100MG/10ML UDC NG SCH (10:01)
[2020-07-14] MEDS: CALCIUM GLUCONATE 1,000 MG in DEXT 5% WATER 90 ML IV SCH (10:01)
[2020-07-14] MEDS: CALCITRIOL 1 MCG/ML ORAL SYR PO SCH (10:01)
[2020-07-14] MEDS: SUCRALFATE 1 G/10 ML UDC PO SCH ×4 (10:01→21:05)
[2020-07-14] MEDS: MIDODRINE HCL 5MG TABLET PO SCH ×3 (10:02→17:55)
[2020-07-14] MEDS: ACETAMINOPHEN 650MG/20.3ML UDC GT PRN (10:38)
[2020-07-14] MEDS: MIDAZOLAM HCL 100 MG in SODIUM CHLORIDE 0.9% 80 ML IV PRN ×2 (10:50→17:55)
[2020-07-14] MEDS ORDERED: SODIUM BICARBONATE 8.4% 1 MEQ/ML 50ML SYR IV SCH (11:00)
[2020-07-14] MEDS: CEFEPIME 1,000 MG in DEXTROSE 5% WATER 50 ML IV SCH ×2 (12:24→22:25)
[2020-07-14] MEDS: NOREPINEPHRINE 32 MG in SODIUM CHLORIDE 0.9% 218 ML IV PRN (12:25)
[2020-07-14 13:18] LABS: HEMATOCRIT. 23.8 % (36.0-48.0); HEMOGLOBIN. 7.6 g/dL (12.0-16.0); MEAN CORPUSCULAR HEMOGLOBIN 29.1 pg (28.0-32.0); MEAN CORPUSCULAR VOLUME 91.4 fL (81.0-99.0); MEAN PLATELET VOLUME 9.7 fl (7.4-10.4); PLATELET 71 x1000/uL (130-400); RED BLOOD CELL COUNT 2.61 mill/uL (4.2-5.4); RED CELL DISTRIBUTION WIDTH 16.5 % (11.6-14.6)
[2020-07-14 14:47] LABS: NUCLEATED RED BLOOD CELLS 3 /100 WBC; PLATELET ESTIMATE DECREASED
[2020-07-14] MEDS ORDERED: DEXTROSE 50% WATER 50ML SYRINGE IV NR (20:42)
[2020-07-14] MEDS ORDERED: DEXTROSE 50% WATER 50ML SYRINGE IV ONE (20:48)
[2020-07-15] VITALS (92 sets, daily range): BP systolic 95–153; BP diastolic 19–73
[2020-07-15] MEDS: IPRATROPIUM/ALBUTEROL 0.5-3(2.5)MG/3ML NEB HHN SCH ×7 (00:33→23:51)
[2020-07-15] MEDS: METOCLOPRAMIDE HCL 10MG/2ML VIAL IV SCH ×5 (00:42→23:23)
[2020-07-15] MEDS: DEXT 5%/0.9% NACL 1,000 ML IV SCH (00:43)
[2020-07-15] MEDS: FENTANYL CITRATE/PF 2,500 MCG in SODIUM CHLORIDE 0.9% 200 ML IV PRN ×3 (00:54→17:16)
[2020-07-15] MEDS: MIDAZOLAM HCL 100 MG in SODIUM CHLORIDE 0.9% 80 ML IV PRN ×2 (03:38→14:26)
[2020-07-15] MEDS: CALCIUM CARBONATE 500MG TABLET CHEW PO SCH ×3 (05:33→22:00)
[2020-07-15 05:38] LABS: HEMATOCRIT. 26.5 % (36.0-48.0); HEMOGLOBIN. 8.2 g/dL (12.0-16.0); MEAN CORPUSCULAR HEMOGLOBIN 28.4 pg (28.0-32.0); MEAN CORPUSCULAR VOLUME 91.9 fL (81.0-99.0); MEAN PLATELET VOLUME 9.3 fl (7.4-10.4); PLATELET 75 x1000/uL (130-400); RED BLOOD CELL COUNT 2.89 mill/uL (4.2-5.4); RED CELL DISTRIBUTION WIDTH 16.7 % (11.6-14.6)
[2020-07-15] MEDS ORDERED: DEXTROSE 50% WATER 50ML SYRINGE IV ONE (06:15)
[2020-07-15] MEDS ORDERED: DEXTROSE 50% WATER 50ML SYRINGE IV SCH (06:15)
[2020-07-15] MEDS ORDERED: DEXTROSE 50% WATER 50ML SYRINGE IV NR (08:00)
[2020-07-15] MEDS ORDERED: SODIUM BICARBONATE 8.4% 1 MEQ/ML 50ML SYR IV ONE (08:00)
[2020-07-15 08:02] LABS: BG BASE EXCESS -18.9 mmol/L (-2.0-2.0); BG DEOXYHEMOGLOBIN 2.8 % (0.0-5.0); BG HCO3 ACT 11.9 mmol/L (22.0-26.0); BG METHEMOGLOBIN 0.1 % (0.0-1.5); BG OXYGEN SATURATION 97.2 % (92.0-98.5); BG OXYHEMOGLOBIN 97.1 % (94.0-97.0); BG SAMPLE SITE RIGHT RADIAL; BG TOTAL HEMOGLOBIN 7.9 g/dL (12.0-18.0); BG VENT MODE VENT- PRVC
[2020-07-15] MEDS: NOREPINEPHRINE 32 MG in SODIUM CHLORIDE 0.9% 218 ML IV PRN (08:23)
[2020-07-15 08:29] LABS: NUCLEATED RED BLOOD CELLS 10 /100 WBC; PLATELET ESTIMATE DECREASED
[2020-07-15] MEDS: SUCRALFATE 1 G/10 ML UDC PO SCH ×4 (10:08→20:59)
[2020-07-15] MEDS: PANTOPRAZOLE SODIUM 40 MG/VIAL IV SCH ×2 (10:08→21:00)
[2020-07-15] MEDS: DOCUSATE SODIUM SUGAR FREE 100MG/10ML UDC NG SCH (10:08)
[2020-07-15] MEDS: CALCITRIOL 1 MCG/ML ORAL SYR PO SCH (10:09)
[2020-07-15] MEDS: MIDODRINE HCL 5MG TABLET PO SCH ×3 (10:09→17:24)
[2020-07-15] MEDS: SODIUM BICARBONATE 150 MEQ in DEXT 10% WATER 1,000 ML IV SCH (10:11)
[2020-07-15] MEDS: CEFEPIME 1,000 MG in DEXTROSE 5% WATER 50 ML IV SCH ×2 (12:05→22:38)
[2020-07-16] VITALS (25 sets, daily range): BP systolic 56–130; BP diastolic 16–50
[2020-07-16] MEDS: MIDAZOLAM HCL 100 MG in SODIUM CHLORIDE 0.9% 80 ML IV PRN (01:29)
[2020-07-16] MEDS: FENTANYL CITRATE/PF 2,500 MCG in SODIUM CHLORIDE 0.9% 200 ML IV PRN (01:29)
[2020-07-16] MEDS: IPRATROPIUM/ALBUTEROL 0.5-3(2.5)MG/3ML NEB HHN SCH (03:50)
[2020-07-16] MEDS: NOREPINEPHRINE 32 MG in SODIUM CHLORIDE 0.9% 218 ML IV PRN (04:05)
[2020-07-16] MEDS: SODIUM BICARBONATE 150 MEQ in DEXT 10% WATER 1,000 ML IV SCH (04:40)
[2020-07-16] MEDS ORDERED: DOPAMINE 800MG PREMIX (DOUBLE) 250 ML IV PRN (05:00)
[2020-07-16] MEDS: CALCIUM CARBONATE 500MG TABLET CHEW PO SCH (06:00)
[2020-07-16] MEDS ORDERED: EPINEPHRINE 10 MG in SODIUM CHLORIDE 0.9% 240 ML IV PRN (06:00)
== END 2020-07-16 06:32 | disposition expired | DRG 720 ==
LOC: ER 08:15 → MICUSO 14:08 → EDBEDREQSVC 15:21 → EDBEDREQ 15:22 → ENRESERV 15:28 → CANRESERV 15:28 → EDBEDREQSVC 15:56 → MICUSO 06-21 20:12 → MICUNO 07-11 13:00
PROVIDERS: ADMIT Internal Medicine; ATTEND Internal Medicine
PROC: 5A09457 Assistance with Respiratory Ventilation, 24-96 Consecutive Hours, Continuous Positive Airway Pressure (ICD-10-PCS; 2020-06-19)
PROC: 5A1955Z Respiratory Ventilation, Greater than 96 Consecutive Hours (ICD-10-PCS; principal; 2020-06-22)
PROC: 30233M1 Transfusion of Nonautologous Plasma Cryoprecipitate into Peripheral Vein, Percutaneous Approach (ICD-10-PCS; 2020-06-22)
PROC: 0BH17EZ Insertion of Endotracheal Airway into Trachea, Via Natural or Artificial Opening (ICD-10-PCS; 2020-06-22)
PROC: 06HY33Z Insertion of Infusion Device into Lower Vein, Percutaneous Approach (ICD-10-PCS; 2020-06-22)
PROC: XW13325 Transfusion of Convalescent Plasma (Nonautologous) into Peripheral Vein, Percutaneous Approach, New Technology Group 5 (ICD-10-PCS; 2020-06-22)
PROC: 30233N1 Transfusion of Nonautologous Red Blood Cells into Peripheral Vein, Percutaneous Approach (ICD-10-PCS; 2020-07-07)
PROC: 5A12012 Performance of Cardiac Output, Single, Manual (ICD-10-PCS; 2020-07-16)
DX: A41.89 Other specified sepsis (principal); U07.1 COVID-19; J12.89 Other viral pneumonia; I50.23 Acute on chronic systolic (congestive) heart failure; K52.9 Noninfective gastroenteritis and colitis, unspecified; N20.0 Calculus of kidney; E87.6 Hypokalemia; E87.2 Acidosis; E87.1 Hypo-osmolality and hyponatremia; N17.0 Acute kidney failure with tubular necrosis; F41.9 Anxiety disorder, unspecified; I46.9 Cardiac arrest, cause unspecified; E87.8 Other disorders of electrolyte and fluid balance, not elsewhere classified; E83.42 Hypomagnesemia; I42.9 Cardiomyopathy, unspecified; G92 Toxic encephalopathy; J80 Acute respiratory distress syndrome; E43 Unspecified severe protein-calorie malnutrition; D18.09 Hemangioma of other sites; E78.1 Pure hyperglyceridemia; R65.21 Severe sepsis with septic shock; E83.39 Other disorders of phosphorus metabolism; I13.0 Hypertensive heart and chronic kidney disease with heart failure and stage 1 through stage 4 chronic kidney disease, or unspecified chronic kidney disease; N18.9 Chronic kidney disease, unspecified; K59.00 Constipation, unspecified; D64.9 Anemia, unspecified; R94.31 Abnormal electrocardiogram [ECG] [EKG]; E16.2 Hypoglycemia, unspecified; K27.4 Chronic or unspecified peptic ulcer, site unspecified, with hemorrhage; K29.71 Gastritis, unspecified, with bleeding; Z90.49 Acquired absence of other specified parts of digestive tract; Z87.442 Personal history of urinary calculi; Z68.39 Body mass index [BMI] 39.0-39.9, adult
CPT/HCPCS: 36415; 36600; 71045; 74176; 76770; 80048; 80053; 81003; 82140; 82306; 82330; 82375; 82533; 82607; 82652; 82728; 82805; 82962; 83036; 83540; 83550; 83615; 83735; 83880; 84100; 84145; 84443; 84478; 84484; 84550; 85014; 85018; 85025; 85379; 85384; 86140; 86850; 86900; 86920; 86927; 87070; 87077; 87635; 93005; 94640; 94660; 96365; 99291; A6261; C9113; J0610; J0692; J0696; J1100; J1265; J1650; J2060; J2250; J2370; J2405; J2704; J2765; J2920; J3010; J3475; J3480; J3490; J7030; J7040; J7042; J7050; J7060; P9016; P9017; U0003; A4315